=== PATIENT | male | born 1945 | race Caucasian/White ===

== ENCOUNTER → 2017-10-22 07:58 | Outpatient (CLI) | payer MEDICARE, OTHER, SELFPAY ==
--- NOTE | 2017-10-22 | DI.RAD.S_ITS ---
PROCEDURE: XR WRIST RT MIN 3V INDICATIONS: RIGHT WRIST PAIN TECHNIQUE: 3 views of the wrist were acquired. COMPARISON: None. FINDINGS: Bones: No fractures or dislocations. No suspicious bony lesions that would indicate likelihood of underlying infection or neoplasm. There are, however, small erosions involving the ulnar styloid process. The patient indicates that the tenderness is most prominent at the distal ulna an area of erosions. Scaphoid view: No trauma to the scaphoid is found. Soft tissues: No suspicious soft tissue calcifications. IMPRESSION: Rheumatoid arthritis is the likely cause for the asymmetric finding of predominance of small osseous erosions at the ulnar styloid process and at its base. Dictated by: Abelardo Lagunas M.D. on 10/22/2017 at 9:04 Approved by: Abelardo Lagunas M.D. on 10/22/2017 at 9:09
== END ==
PROVIDERS: PCP Internal Medicine; Visit Provider Internal Medicine
DX: M06.9 Rheumatoid arthritis, unspecified (principal); M25.531 Pain in right wrist
CPT/HCPCS: 73110

== ENCOUNTER → 2018-01-19 14:33 | Outpatient (CLI) | payer MEDICARE, OTHER, SELFPAY ==
--- NOTE | 2018-01-19 | DI.RAD.S_ITS ---
PROCEDURE: XR FEMUR LT MIN 2V INDICATIONS: UNSPECIFIED FALL left femur pain TECHNIQUE: 4 views of the femur were acquired. COMPARISON: None. FINDINGS: Bones: No fractures or dislocations. No suspicious bony lesions. Degenerative changes in the left hip. Soft tissues: No suspicious soft tissue calcifications or masses. Vascular calcifications. Left inguinal surgical clips. IMPRESSION: No acute fractures or dislocations. If there is clinical concern for a radiographically occult hip fracture then a noncontrast MRI would be recommended for further evaluation. Dictated by: Demetrius Suero M.D. on 01/19/2018 at 16:36 Approved by: Demetrius Suero M.D. on 01/19/2018 at 16:38
== END ==
PROVIDERS: PCP Internal Medicine; Visit Provider Student in an Organized Health Care Education/Training Program
DX: M89.8X5 Other specified disorders of bone, thigh (principal); W19.XXXA Unspecified fall, initial encounter
CPT/HCPCS: 73552

== ENCOUNTER → 2018-09-28 07:00 | Outpatient (CLI) | payer MEDICARE, OTHER, SELFPAY ==
[2018-09-28 09:23] LABS: Alanine Aminotransferase 28 IU/L (21-72); Albumin 3.7 g/dL (3.5-5.0); Albumin Globulin Ratio 1.4 (1.0-2.8); Alkaline Phosphatase 69 U/L (38-126); Aspartate Aminotransferase 35 IU/L (17-59); Bilirubin Total 1.3 mg/dL (0.2-1.3); Blood Urea Nitrogen 33 mg/dL (9-20); Calcium 9.3 mg/dL (8.4-10.2); Carbon Dioxide 26 mmol/L (22-32); Chloride 104 mmol/L (98-107); Estimated Glomerular Filt Rate 45.9 mL/min (>60); Globulin 2.7 g/dL (1.7-4.1); Glucose 97 mg/dL (80-110); HEMOLYSIS < 15 (0-50); Potassium 4.2 mmol/L (3.4-5.1); Sodium 139 mmol/L (137-145); Total Protein 6.4 g/dL (6.3-8.2)
[2018-09-30 14:08] LABS: Lipoprofile NMR SEE SEPERATE REPORT
== END ==
PROVIDERS: PCP Internal Medicine; Visit Provider Physician Assistant Medical
DX: E78.2 Mixed hyperlipidemia (principal); I10 Essential (primary) hypertension
CPT/HCPCS: 36415; 80053; 83704; 83735

== ENCOUNTER 2018-10-07 07:15 | Day surgery (SDC) | payer MEDICARE, OTHER, SELFPAY ==
--- NOTE | 2018-10-07 | PATH_ITS ---
[facility] Accession Number: [id number] . 01 Material submitted: . colon - BIOPSY OF COLON ANASTAMOSIS . 02 Diagnosis: Biopsy of Colon Anastomosis: Multiple fragments of small bowel mucosa with mild chronic inflammation. Negative for evidence of neoplasm. V/10/10/2018 . 02 Electronically signed: . Osito Billingsley MD, Pathologist NPI- [id number] . 01 Gross description: . BIOPSY OF COLON ANASTAMOSIS: Received in formalin are 3 fragment(s) of toussaint, soft tissue measuring 0.1 x 0.1 x 0.1 cm to 0.3 x 0.2 x 0.2 cm which is entirely submitted and submitted entirely in 1 cassette(s) /DMC /DM . 02 Pathologist provided ICD-10: Z90.49 . 02 CPT . 972761 Performed at: 01 [facility] [address] [facility], [place], [place] [id number] MD Michael Malone MD Phone: [phone] Performed at: 02 [facility] [address] [place], [place] [id number] MD Allyn Kline MD Phone: [phone]
[2018-10-07 07:58] VITALS: BP 149/87; PULSE 63; RESP 18; TEMP 36.1; O2SAT 98; BMI 26.5
[2018-10-07] MEDS: SODIUM CHLORIDE 0.9% 1,000 ML 200 ML IV (08:31)
--- NOTE | 2018-10-07 08:46 | PM.HP.1 ---
History of Present Illness Date Patient Seen: 10/07/18 Time Patient Seen: 08:46 Chief complaint: [id number] Narrative: Patient is a gentleman who has had a colon resection for cancer. He is here for a surveillance colonoscopy. No bleeding. Patient History Medical History (Updated 10/07/18 @ 08:48 by Rodney Shelton MD) Chronic anticoagulation (Chronic) History of SD (myocardial infarction) (Resolved) History of pulmonary embolism (Resolved) Surgical History (Updated 10/07/18 @ 08:48 by Rodney Shleton MD) History of colon resection (Acute) History of heart artery stent (Resolved) Social History household members: spouse Family & Social History Social History: household members spouse Meds Home Medications Medication Instructions Recorded Confirmed Type hydrochlorothiazide 25 mg PO Q DAY #0 01/17/11 10/07/18 History allopurinol 300 mg PO QDAY #0 01/28/11 10/07/18 History ezetimibe-simvastatin [Vytorin 1 tab PO HS #0 01/28/11 History 10-10] CALCIUM CARBONATE (#CALTRATE 600) 600 mg PO QDAY #0 06/03/11 History oxycodone 5 mg PO PRN #0 06/03/11 10/07/18 History Xarelto 20 mg PO Q DAY #0 01/09/17 10/07/18 History amlodipine 2.5 mg PO DAILY 10/07/18 10/07/18 History aspirin [Aspir-81] 81 mg PO DAILY 10/07/18 10/07/18 History Allergies Allergy/AdvReac Type Severity Reaction Status Date / Time enalapril [ENALAPRIL] Allergy Mild EDEMA Unverified 10/07/18 07:58 crab [CRAB] Allergy Unknown CRAB/LOBSTE Unverified 10/07/18 07:58 R-VOMITING lisinopril [LISINOPRIL] Allergy Unknown EDEMA OF Unverified 10/07/18 07:58 LIPS Review of Systems Review of Systems All systems reviewed & are unremarkable except as noted in HPI and below Cardiovascular Comments: Had a silent SD in the past. No symptoms since no problems with his heart since. He did have a pulmonary embolism 2 years ago. Because of this he is chronically anticoagulated. He does not know if he has any predisposition to clotting. Exam Vital Signs (past 8 hours): - 10/07/18 07:58 Temperature 97.0 F L Pulse Rate 63 Respiratory Rate 18 Blood Pressure 149/87 H Pulse Oximetry 98 Oxygen Delivery Method Room Air Narrative Exam Narrative: Pleasant cooperative patient no apparent distress. Lungs are clear to auscultation. No rales or rhonchi. Heart regular rate and rhythm no murmur gallop. Abdomen is soft nontender without mass. Scar in the upper abdomen noted. He is very ticklish in is difficult to assess his abdomen. Patient is alert and oriented x3. Assessment & Plan Assessment & Plan narrative: The patient for a screening colonoscopy. I have discussed the procedure with them. Risks of bleeding, perforation which would necessitate major operation, failure to find remove all lesions, the potential tattoo were all discussed. All questions were answered. They wished to proceed.
--- NOTE | 2018-10-07 08:50 | P.HP_ITS ---
History of Present Illness Date Patient Seen: 10/07/18 Time Patient Seen: 08:46 Chief complaint: [id number] Narrative: Patient is a gentleman who has had a colon resection for cancer. He is here for a surveillance colonoscopy. No bleeding. Patient History Medical History (Updated 10/07/18 @ 08:48 by Rodney Shelton MD) Chronic anticoagulation (Chronic) History of WI (myocardial infarction) (Resolved) History of pulmonary embolism (Resolved) Surgical History (Updated 10/07/18 @ 08:48 by Rodney Shelton MD) History of colon resection (Acute) History of heart artery stent (Resolved) Social History household members: spouse Family & Social History Social History: household members spouse Meds Home Medications Medication Instructions Recorded Confirmed Type hydrochlorothiazide 25 mg PO Q DAY #0 01/17/11 10/07/18 History allopurinol 300 mg PO QDAY #0 01/28/11 10/07/18 History ezetimibe-simvastatin [Vytorin 1 tab PO HS #0 01/28/11 History 10-10] CALCIUM CARBONATE (#CALTRATE 600) 600 mg PO QDAY #0 06/03/11 History oxycodone 5 mg PO PRN #0 06/03/11 10/07/18 History Xarelto 20 mg PO Q DAY #0 01/09/17 10/07/18 History amlodipine 2.5 mg PO DAILY 10/07/18 10/07/18 History aspirin [Aspir-81] 81 mg PO DAILY 10/07/18 10/07/18 History Allergies Allergy/AdvReac Type Severity Reaction Status Date / Time enalapril [ENALAPRIL] Allergy Mild EDEMA Unverified 10/07/18 07:58 crab [CRAB] Allergy Unknown CRAB/LOBSTE Unverified 10/07/18 07:58 R-VOMITING lisinopril [LISINOPRIL] Allergy Unknown EDEMA OF Unverified 10/07/18 07:58 LIPS Review of Systems Review of Systems All systems reviewed & are unremarkable except as noted in HPI and below Cardiovascular Comments: Had a silent WI in the past. No symptoms since no problems with his heart since. He did have a pulmonary embolism 2 years ago. Because of this he is chronically anticoagulated. He does not know if he has any predisposition to clotting. Exam Vital Signs (past 8 hours): - 10/07/18 07:58 Temperature 97.0 F L Pulse Rate 63 Respiratory Rate 18 Blood Pressure 149/87 H Pulse Oximetry 98 Oxygen Delivery Method Room Air Narrative Exam Narrative: Pleasant cooperative patient no apparent distress. Lungs are clear to auscultation. No rales or rhonchi. Heart regular rate and rhythm no murmur gallop. Abdomen is soft nontender without mass. Scar in the upper abdomen noted. He is very ticklish in is difficult to assess his abdomen. Patient is alert and oriented x3. Assessment & Plan Assessment & Plan narrative: The patient for a screening colonoscopy. I have discussed the procedure with them. Risks of bleeding, perforation which would necessitate major operation, failure to find remove all lesions, the potential tattoo were all discussed. All questions were answered. They wished to proceed.
--- NOTE | 2018-10-07 08:50 | PM.PREOP ---
Pre-operative Note Interval Note History & Physical reviewed/Exam performed by Physician: Yes Changes to H&P: No ASA Class (for procedural sedation): III
[2018-10-07] MEDS: fentaNYL 250 MCG/5 ML INJ IV (09:09)
[2018-10-07] MEDS: MIDAZOLAM 5 MG/5 ML VIAL IV (09:09)
--- NOTE | 2018-10-07 09:18 | PM.OP.ENDO ---
Operative Date/Time/Diagnoses Date of procedure: 10/07/18 Time of procedure: 09:18 Pre-op diagnosis: History of colon cancer Post-op diagnosis: same (Sigmoid diverticulosis. Internal hemorrhoids) Procedure & Clinicians Study performed: Colonoscopy with cold biopsy Same procedure as scheduled: Yes Indications: Screening/surveillance. Last colonoscopy 3 years ago. Surgeon: Rodney Shelton Procedure Notes SCOAP/Timeout: Performed Procedure in detail: The patient was placed in the left lateral decubitus position and underwent IV sedation directed by the surgeon consisting of fentanyl and Versed. Digital exam was remarkable for a mildly firm prostate. The scope was inserted and advanced through the rectum into the sigmoid, descending, transverse, and ascending colon. The patient was noted to have extensive sigmoid diverticulosis. The anastomosis was reached. The patient had had a right hemicolectomy. At the edge of the small bowel there was of small prominent area that I biopsied to see if it was an abnormality. I suspect it is just a normal variant but wanted to be certain. The scope was gradually brought out. No Polyps were found. The scope ultimately was retroflexed in the rectum. The appearance was remarkable for internal hemorrhoids without ulceration. The scope was removed and the patient tolerated the procedure well. The prep was good. Scope withdrawal time: 10 min excluding biopsy time Sedation minutes: 24 Findings: diverticulosis (Sigmoid) and internal hemorrhoids Specimen(s): other (Biopsy of anastomosis) Recommendations: Colonscopy in 5 years Follow up: as needed Disposition: PACU
[2018-10-07 09:22] VITALS: BP 107/71; PULSE 61; RESP 18; TEMP 36.7; O2SAT 96
[2018-10-07 09:29] VITALS: BP 135/67; PULSE 63; RESP 14; O2SAT 97
[2018-10-07 09:31] VITALS: BP 138/77; PULSE 61; RESP 13; O2SAT 97
[2018-10-07 09:40] VITALS: BP 120/76; PULSE 58; RESP 15; TEMP 36.9; O2SAT 97
[2018-10-07 09:56] VITALS: BP 131/78; PULSE 58; RESP 16; TEMP 36.3; O2SAT 94
== END 2018-10-07 10:00 | disposition home or self-care (01) ==
PROVIDERS: PCP Internal Medicine; Visit Provider Specialist
PROC: 0DJD8ZZ Inspection of Lower Intestinal Tract, Via Natural or Artificial Opening Endoscopic (ICD-10-PCS; CPT 45378; principal; 2018-10-07 08:45)
DX: Z85.038 Personal history of other malignant neoplasm of large intestine (principal); Z90.49 Acquired absence of other specified parts of digestive tract; K57.30 Diverticulosis of large intestine without perforation or abscess without bleeding; K64.8 Other hemorrhoids; Z79.01 Long term (current) use of anticoagulants; I25.2 Old myocardial infarction; Z86.711 Personal history of pulmonary embolism
CPT/HCPCS: 45380; 88305; 99152; 99153; J2250; J3010

== ENCOUNTER → 2018-10-13 07:16 | Outpatient (CLI) | payer MEDICARE, OTHER, SELFPAY ==
[2018-10-13 08:31] LABS: BUN Creatinine Ratio 19.3 (6-22); Blood Urea Nitrogen 29 mg/dL (9-20); Calcium 9.4 mg/dL (8.4-10.2); Carbon Dioxide 26 mmol/L (22-32); Chloride 105 mmol/L (98-107); Estimated Glomerular Filt Rate 45.9 mL/min (>60); Glucose 101 mg/dL (80-110); HEMOLYSIS < 15 (0-50); Potassium 4.5 mmol/L (3.4-5.1); Sodium 139 mmol/L (137-145)
== END ==
PROVIDERS: PCP Internal Medicine; Visit Provider Internal Medicine
DX: N18.9 Chronic kidney disease, unspecified (principal)
CPT/HCPCS: 36415; 80048

== ENCOUNTER → 2019-10-09 06:40 | Outpatient (CLI) | payer MEDICARE, OTHER, SELFPAY ==
[2019-10-09 08:46] LABS: Alanine Aminotransferase 20 IU/L (<50); Albumin 3.9 g/dL (3.5-5.0); Albumin Globulin Ratio 1.3 (1.0-2.8); Alkaline Phosphatase 65 U/L (38-126); Aspartate Aminotransferase 40 IU/L (17-59); BUN Creatinine Ratio 19.9 (6-22); Bilirubin Total 1.3 mg/dL (0.2-1.3); Blood Urea Nitrogen 29 mg/dL (9-20); Calcium 9.7 mg/dL (8.4-10.2); Carbon Dioxide 28 mmol/L (22-32); Chloride 105 mmol/L (98-107); Estimated Glomerular Filt Rate 47.2 mL/min (>60); Globulin 2.9 g/dL (1.7-4.1); Glucose 106 mg/dL (80-110); HEMOLYSIS 21 (0-50); Magnesium 1.9 mg/dL (1.6-2.3); Potassium 4.5 mmol/L (3.4-5.1); Sodium 137 mmol/L (137-145); Total Protein 6.8 g/dL (6.3-8.2)
[2019-10-11 08:11] LABS: Cholesterol, Total 163 mg/dL (100-199); HDL-Cholesterol 74 mg/dL (>39); HDL-Particle (Total) 37.7 umol/L (>=30.5); Historical Reading Comment: (.); LDL Particle 718 nmol/L (<1000); LDL Size 21.4 nm (>20.5); LDL-Cholsterol 79 mg/dL (0-99); LP-IR Score <25 (<=45); Small LDL- Particle 121 nmol/L (<=527); Triglycerides 50 mg/dL (0-149)
== END ==
PROVIDERS: PCP Internal Medicine; Referring Provider Specialist; Visit Provider Specialist
DX: E78.2 Mixed hyperlipidemia (principal); I10 Essential (primary) hypertension
CPT/HCPCS: 36415; 80053; 80061; 83704; 83735

== ENCOUNTER → 2019-11-07 18:32 | Outpatient (ROUT) | payer MEDICARE, OTHER, SELFPAY ==
[2019-11-07 18:54] LABS: Add Manual Diff / Slide Review NO; Basophils Absolute Auto 100 /uL (0-100); Basophils Percent Auto 1.1 % (0-2); Eosinophils Absolute Auto 100 /uL (0-450); Hematocrit 38.5 % (41-53); Hemoglobin 13.5 g/dL (13.5-17.5); Lymphocytes Absolute Auto 500 /uL (1100-4500); Lymphocytes Percent Auto 10.3 % (25-40); Mean Corpuscular Hemoglobin 35.3 PG (26-34); Monocytes Absolute Auto 400 /uL (0-900); Monocytes Percent Auto 7.5 % (3-14); Neutrophils Absolute Auto 3900 /uL (1500-7000); Neutrophils Percent Auto 78.1 % (50-75); Platelet Count 118 X10^3/uL (150-400); Red Blood Cell Count 3.81 X10^6/uL (4.5-5.9); Red Cell Distribution Width 13.6 % (11.6-14.8); White Blood Cell Count 4.9 X10^3/uL (4.5-11.0)
[2019-11-07 19:35] LABS: TSH w/ Reflex to FT4 1.33 uIU/mL (0.47-4.68)
[2019-11-07 19:36] LABS: Prostate Specific Antigen 1.87 ng/mL (0.10-4.00)
== END ==
PROVIDERS: PCP Internal Medicine; Visit Provider Internal Medicine
DX: R53.83 Other fatigue (principal); N40.0 Benign prostatic hyperplasia without lower urinary tract symptoms
CPT/HCPCS: 84153; 84443; 85025

== ENCOUNTER → 2020-03-25 07:02 | Outpatient (CLI) | payer MEDICARE, OTHER, SELFPAY ==
[2020-03-25 08:35] LABS: Alanine Aminotransferase 21 IU/L (<50); Albumin 3.9 g/dL (3.5-5.0); Albumin Globulin Ratio 1.3 (1.0-2.8); Alkaline Phosphatase 69 U/L (38-126); Aspartate Aminotransferase 32 IU/L (17-59); BUN Creatinine Ratio 19.6 (6-22); Bilirubin Total 1.2 mg/dL (0.2-1.3); Blood Urea Nitrogen 33 mg/dL (9-20); Calcium 9.3 mg/dL (8.4-10.2); Carbon Dioxide 28 mmol/L (22-32); Chloride 105 mmol/L (98-107); Estimated Glomerular Filt Rate 40.1 mL/min (>60); Globulin 3.1 g/dL (1.7-4.1); Glucose 107 mg/dL (80-110); HEMOLYSIS < 15 (0-50); Potassium 4.2 mmol/L (3.4-5.1); Sodium 136 mmol/L (137-145)
[2020-04-02 16:06] LABS: LDL Particle 677
[2020-04-02 16:07] LABS: LDL-Cholsterol 79
[2020-04-02 16:08] LABS: Cholesterol, Total 169; HDL-Cholesterol 79; Triglycerides 52
[2020-04-02 16:09] LABS: HDL-Particle (Total) 36.9
[2020-04-02 16:10] LABS: LDL Size 21.1; Small LDL- Particle 141
== END ==
PROVIDERS: PCP Internal Medicine; Referring Provider Specialist; Visit Provider Specialist
DX: E78.2 Mixed hyperlipidemia (principal); I10 Essential (primary) hypertension; N18.2 Chronic kidney disease, stage 2 (mild)
CPT/HCPCS: 36415; 80053; 80061; 83704; 83735

== ENCOUNTER → 2020-04-08 07:11 | Outpatient (CLI) | payer MEDICARE, OTHER, SELFPAY ==
[2020-04-08 09:10] LABS: BUN Creatinine Ratio 16.6 (6-22); Blood Urea Nitrogen 25 mg/dL (9-20); Calcium 9.5 mg/dL (8.4-10.2); Carbon Dioxide 30 mmol/L (22-32); Chloride 105 mmol/L (98-107); Estimated Glomerular Filt Rate 45.4 mL/min (>60); Glucose 102 mg/dL (80-110); HEMOLYSIS < 15 (0-50); Potassium 4.5 mmol/L (3.4-5.1); Sodium 136 mmol/L (137-145)
== END ==
PROVIDERS: PCP Internal Medicine; Referring Provider Specialist; Visit Provider Specialist
DX: I10 Essential (primary) hypertension (principal)
CPT/HCPCS: 36415; 80048

== ENCOUNTER → 2020-05-06 10:39 | Outpatient (CLI) | payer MEDICARE, OTHER, SELFPAY ==
[2020-05-06 12:26] LABS: BUN Creatinine Ratio 19.5 (6-22); Blood Urea Nitrogen 34 mg/dL (9-20); Calcium 9.5 mg/dL (8.4-10.2); Carbon Dioxide 31 mmol/L (22-32); Chloride 103 mmol/L (98-107); Estimated Glomerular Filt Rate 38.5 mL/min (>60); Glucose 116 mg/dL (80-110); HEMOLYSIS < 15 (0-50); Magnesium 1.9 mg/dL (1.6-2.3); Potassium 4.3 mmol/L (3.4-5.1); Sodium 138 mmol/L (137-145)
== END ==
PROVIDERS: PCP Internal Medicine; Referring Provider Specialist; Visit Provider Specialist
DX: I10 Essential (primary) hypertension (principal)
CPT/HCPCS: 36415; 80048; 83735

== ENCOUNTER → 2021-03-26 06:59 | Outpatient (CLI) | payer MEDICARE, OTHER, SELFPAY ==
[2021-03-26 08:48] LABS: Alanine Aminotransferase 23 IU/L (<50); Albumin 3.7 g/dL (3.5-5.0); Albumin Globulin Ratio 1.4 (1.0-2.8); Alkaline Phosphatase 59 U/L (38-126); Aspartate Aminotransferase 32 IU/L (17-59); BUN Creatinine Ratio 16.5 (6-22); Blood Urea Nitrogen 26 mg/dL (9-20); Calcium 9.6 mg/dL (8.4-10.2); Carbon Dioxide 27 mmol/L (22-32); Chloride 108 mmol/L (98-107); Globulin 2.7 g/dL (1.7-4.1); Glucose 113 mg/dL (80-110); HEMOLYSIS < 15 (0-50); Magnesium 1.9 mg/dL (1.6-2.3); Potassium 4.3 mmol/L (3.4-5.1); Sodium 140 mmol/L (137-145); Total Protein 6.4 g/dL (6.3-8.2)
== END ==
PROVIDERS: PCP Internal Medicine; Referring Provider Specialist; Visit Provider Physician Assistant Medical
DX: I49.3 Ventricular premature depolarization (principal); I25.5 Ischemic cardiomyopathy
CPT/HCPCS: 36415; 80053; 83735

== ENCOUNTER → 2023-08-18 13:31 | Outpatient (CLI) | payer MEDICARE, OTHER, SELFPAY ==
[2023-08-18 14:00] LABS: Appearance Urine UA CLEAR; Bilirubin Urine UA NEGATIVE (NEGATIVE); Color Urine UA YELLOW; Glucose Urine UA NEGATIVE (Negative); Ketones Urine UA TRACE (NEGATIVE); Leukocyte Esterase Urine UA NEGATIVE (NEGATIVE); Nitrite Urine UA NEGATIVE (Negative); Occult Blood Urine UA NEGATIVE (Negative); Protein Urine UA 2+ (Negative); pH Urine UA 5.5 (4.5-8.0)
[2023-08-18 14:09] LABS: Bacteria Urine None Seen; Culture Indicated Urine Cult Not Indicated; RBC Urine 0-1/HPF (0-5/HPF); Squamous Epithelial Cell Urine None Seen (0-5/HPF); Urine Volume 10mL (spun); WBC Urine 1-5/HPF (0-5/HPF)
== END ==
PROVIDERS: PCP Internal Medicine; Referring Provider Internal Medicine; Visit Provider Internal Medicine
DX: R35.0 Frequency of micturition (principal)
CPT/HCPCS: 81001

== ENCOUNTER → 2023-08-31 15:20 | Outpatient (CLI) | payer MEDICARE, OTHER, SELFPAY ==
[2023-08-31 19:42] LABS: Appearance Urine UA CLEAR; Bilirubin Urine UA NEGATIVE (NEGATIVE); Color Urine UA YELLOW; Glucose Urine UA NEGATIVE (Negative); Ketones Urine UA NEGATIVE (NEGATIVE); Leukocyte Esterase Urine UA NEGATIVE (NEGATIVE); Nitrite Urine UA NEGATIVE (Negative); Occult Blood Urine UA TRACE-INTACT (Negative); Protein Urine UA 1+ (Negative); Specific Gravity Urine UA 1.025 (1.000-1.035); Urobilinogen Urine UA 0.2 E.U./dL (0.2); pH Urine UA 5.5 (4.5-8.0)
[2023-08-31 20:46] LABS: Bacteria Urine None Seen; Culture Indicated Urine Cult Not Indicated; Hyaline Casts Urine 1-5/LPF; RBC Urine 0-1/HPF (0-5/HPF); Squamous Epithelial Cell Urine 0-1 /HPF (0-5/HPF); Urine Volume 10mL (spun); WBC Urine None Seen (0-5/HPF)
[2023-09-02 12:05] LABS: Prostate Specific Antigen 2.53 ng/mL (0.10-4.00)
[2023-09-02 14:11] LABS: BUN Creatinine Ratio 20.3 (6-22); Blood Urea Nitrogen 37 mg/dL (9-20); Calcium 9.4 mg/dL (8.4-10.2); Carbon Dioxide 21 mmol/L (22-32); Chloride 114 mmol/L (98-107); Estimated Glomerular Filt Rate 38 mL/min (>60); Glucose 92 mg/dL (80-110); HEMOLYSIS < 15 (0-50); Potassium 5.4 mmol/L (3.4-5.1); Sodium 140 mmol/L (137-145)
== END ==
LOC: LAB 15:21
PROVIDERS: PCP Internal Medicine; Referring Provider Internal Medicine; Visit Provider Internal Medicine
DX: N41.0 Acute prostatitis (principal); N18.32 Chronic kidney disease, stage 3b
CPT/HCPCS: 36415; 80048; 81001; 84153

== ENCOUNTER 2023-09-30 10:02 | Day surgery (SDC) | payer MEDICARE, OTHER, SELFPAY ==
[2023-09-30 10:32] VITALS: BP 144/85; PULSE 60; RESP 16; TEMP 36.9; O2SAT 99
[2023-09-30] MEDS: LACTATED RINGERS 1,000 ML 150 ML IV (10:36)
--- NOTE | 2023-09-30 10:39 | PM.HP.1 ---
History of Present Illness History of Present Illness Date Patient Seen: 09/30/23 Time Patient Seen: 10:39 Chief complaint: Colonoscopy Narrative: Robert is a 78-year-old man who is here for colonoscopy. His last 1 was 5 years ago and no polyps were found. He did have colon cancer in 2011 and had a right hemicolectomy by Dr. Shelton. 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 Actinic keratoses GERD without esophagitis History of colon cancer Primary osteoarthritis involving multiple joints Chronic kidney disease, stage 3b Mixed hyperlipidemia Essential hypertension Systolic CHF, chronic Acne (~1959) Gout (~1997) Chronic back pain (~2020) Dengue (~1971) Encephalitis (~1948) Mumps (~1948) Hepatitis (~1962) Chicken pox (~1949) Meniere's disease (~2008) Tinnitus (~2009) Hearing loss (~2009) Amebic dysentery Coronary artery disease (~1999) Colorectal cancer (~2011) Chronic anticoagulation History of pulmonary embolism (~2015) History of ID (myocardial infarction) Kidney stone (~1996) Surgical History Anesthesia History of hernia repair (~1992) Pacemaker (~2020) History of heart artery stent History of colon resection (~2011) Family History Mother History of heart disease Social History household members: spouse Smoking Status: Former smoker alcohol intake: current Meds Home Medications and Allergies Home Medications Medication Instructions Recorded Confirmed Type atorvastatin 80 mg tablet 80 mg PO DAILY 10/13/21 08/31/23 History cholecalciferol (vitamin D3) 50 50 mcg PO DAILY 10/13/21 09/30/23 History mcg (2,000 unit) capsule colchicine 0.6 mg tablet (Colcrys) 0.6 mg PO DAILY PRN Gout 10/13/21 09/30/23 History ezetimibe 10 mg tablet (Zetia) 10 mg PO DAILY 10/13/21 09/30/23 History folic acid 1 mg tablet 1 mg PO DAILY 10/13/21 08/31/23 History nitroglycerin 0.4 mg sublingual 0.4 mg sublingual Q5M PRN Chest 10/13/21 09/30/23 History tablet Pain rivaroxaban 15 mg tablet (Xarelto) 15 mg PO DAILY #90 tabs 10/13/21 09/30/23 Rx lorazepam 0.5 mg tablet 0.5 mg PO BID PRN air travel #6 12/09/22 09/30/23 Rx tabs aspirin 81 mg tablet,delayed 81 mg PO DAILY 06/17/23 08/31/23 History release carvedilol 25 mg tablet 12.5 mg PO BID 06/17/23 09/30/23 History allopurinol 100 mg tablet 50 mg (1/2 x 100 mg) PO DAILY #45 09/29/23 Rx tabs Allergies Allergy/AdvReac Type Severity Reaction Status Date / Time enalapril [ENALAPRIL] Allergy Mild EDEMA Verified 08/31/23 11:56 crab [CRAB] Allergy Unknown CRAB/LOBSTE Verified 08/31/23 11:56 R-VOMITING lisinopril [LISINOPRIL] Allergy Unknown EDEMA OF Verified 08/31/23 11:56 LIPS Exam Vital Signs (past 8 hours): - 09/30/23 10:32 Temperature 98.4 F Pulse Rate 60 Respiratory Rate 16 Blood Pressure 144/85 H Pulse Oximetry 99 Oxygen Delivery Method Room Air Oxygen Delivery Method Room Air Const General: No acute distress Resp Effort & Inspection: normal respiratory effort Assessment & Plan Assessment and plan (1) History of colon cancer: Status: Acute Plan We reviewed the risks and benefits of colonoscopy for history of colon cancer and he would like to proceed.
[2023-09-30 11:08] VITALS: BP 111/71; PULSE 62; RESP 12; TEMP 36.4; O2SAT 98
--- NOTE | 2023-09-30 11:09 | PM.OP.COLON ---
Operative Date/Time/Diagnoses Date of procedure: 09/30/23 Time of procedure: 11:09 Pre-op diagnosis: History of colon cancer Post-op diagnosis: same Procedure & Clinicians Study performed: Colonoscopy Same procedure as scheduled: Yes Surgeon: Quan Shook Procedure Notes Procedure in detail: Surgeon: Quan Shook MD Anesthesia: Marcial Pugh MD Procedure: The patient was brought to the endoscopy suite, placed in left lateral decubitus position. The patient was connected to monitoring devices. A time-out was performed. Sedation was administered. Once the patient was adequately sedated, a digital rectal exam was performed and was normal. The scope was then inserted and advanced to the ileocolic anastomosis. The scope was then slowly withdrawn over greater than 6 minutes. The mucosa was thoroughly inspected. There was moderate sigmoid colon diverticulosis. The scope was retroflexed in the rectum. No other abnormalities were found. The scope was straightened and removed. The patient was awakened and brought to recovery. Scope withdrawal time: 7 minutes Sedation time: 12 minutes EBL: 0 Findings: Sigmoid colon diverticulosis Post-procedure Disposition: PACU
[2023-09-30 11:12] VITALS: BP 126/78; PULSE 64; RESP 17; TEMP 36.4; O2SAT 97
[2023-09-30 11:17] VITALS: BP 130/77; PULSE 54; RESP 12; TEMP 36.4; O2SAT 99
[2023-09-30 11:21] VITALS: BP 134/78; PULSE 61; RESP 14; TEMP 36.3; O2SAT 98
== END 2023-09-30 11:27 | disposition home or self-care (01) ==
PROVIDERS: PCP Internal Medicine; Referring Provider Surgery; Visit Provider Surgery
PROC: 0DJD8ZZ Inspection of Lower Intestinal Tract, Via Natural or Artificial Opening Endoscopic (ICD-10-PCS; CPT 45378; principal; 2023-09-30 11:00)
DX: Z12.11 Encounter for screening for malignant neoplasm of colon (principal); Z86.010 Personal history of colon polyps; K57.30 Diverticulosis of large intestine without perforation or abscess without bleeding
CPT/HCPCS: G0105; J2704

== ENCOUNTER 2024-12-07 08:15 | Outpatient (RCR) | payer MEDICARE, OTHER, SELFPAY ==
--- NOTE | 2024-10-12 18:11 | PT.OIE ---
Current Diagnoses Dorsalgia, unspecified (10/12/24) Past Medical History (Last Updated 05/25/24 @ 10:33 by Silvano [place] MD) Acne (~1959) Actinic keratoses Amebic dysentery Benign essential tremor BPH w urinary obs/LUTS Chicken pox (~1949) Chronic anticoagulation Chronic back pain (~2020) Chronic kidney disease, stage 3b Coronary artery disease (~1999) Dengue (~1971) Do not resuscitate Encephalitis (~1948) Essential hypertension GERD without esophagitis Gout (~1997) Hearing loss (~2009) Hepatitis (~1962) History of colon cancer History of UT (myocardial infarction) History of pulmonary embolism (~2015) Homocysteinemia Kidney stone (~1996) Meniere's disease (~2008) Mixed hyperlipidemia Mumps (~1948) Primary osteoarthritis involving multiple joints Systolic CHF, chronic Tinnitus (~2009) Past Surgical History (Last Reviewed 05/25/24 @ 10:16 by Silvano [place] MD) Anesthesia History of colon resection (~2011) History of heart artery stent History of hernia repair (~1992) Pacemaker (~2020) Visit Care Team Role Provider Type Silvano [place] MD Attending Provider Physician Family Provider Primary Care Provider Referring Provider Specialty: Internal Medicine Address: [address] [place] [address] Email: [email or web address] Therapy Initial Evaluation PT-OP-A Visit Information Start: 10/12/24 09:35 Freq: Status: Active Protocol: Document 10/12/24 09:37 BUSINESS PROCESS ENGINEER (Rec: 10/12/24 10:42 BUSINESS PROCESS ENGINEER Laptop) Out-Patient Physical Therapy Visit Information Visit Information Visit Type Initial Evaluation Visit Start Time 09:45 Visit Stop Time 10:35 Visit Number 1 Number of PHONOGRAPH CARTRIDGE ASSEMBLER Visits 0 Precautions Precautions N/A PT-OP-B Current Condition Start: 10/12/24 09:35 Freq: Status: Active Protocol: Document 10/12/24 09:37 BUSINESS PROCESS ENGINEER (Rec: 10/12/24 10:42 BUSINESS PROCESS ENGINEER Laptop) Current Condition History of Current Condition Current Complaints mid and R lumbar pain with radiation to proximal RLE under glute History of Current Condition Lower 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 Has to take a lot of sitting breaks. Mornings are most painful. Does cardiac rehab 3x/wk treadmill and elliptical 20 mins each for 3 years which doesn't bother his back. Walking in neighborhood ~2 miles increases back pain. Has to hold onto treadmill, feels more off balance than he used to. Pain radiates down RLE after increased activity/ yard work with bending and stooping, radiates down to just below glute. Prior Treatments and Tests Has had PT for back in 2005 with success Treatment Goals Patient/Caregiver Goals To be more active, to do yard work without so many rest breaks, walk longer distances for golf. PT-OP-C Subjective Start: 10/12/24 09:35 Freq: Status: Active Protocol: Document 10/12/24 09:37 BUSINESS PROCESS ENGINEER (Rec: 10/12/24 12:11 BUSINESS PROCESS ENGINEER Laptop) Patient Questionnaires Oswestry Low Back Index Oswestry Score 16% OP-PT Pain Assessment Comments Pain Comments Pt reports pain to mid back and R side with radiation to proximal post thigh under glute. Pain exacerbates with sitting unsupported, amb long distances outside on uneven ground, and bending and stooping to perform yard work. PT-OP-D Balance Start: 10/12/24 09:35 Freq: Status: Active Protocol: Document 10/12/24 09:37 BUSINESS PROCESS ENGINEER (Rec: 10/12/24 10:42 BUSINESS PROCESS ENGINEER Laptop) Balance Tests Single Limb Standing Single Limb- Right 4s Single Limb- Left 4s PT-OP-F Manual Assessment Start: 10/12/24 09:35 Freq: Status: Active Protocol: Document 10/12/24 09:37 BUSINESS PROCESS ENGINEER (Rec: 10/12/24 12:11 BUSINESS PROCESS ENGINEER Laptop) Manual Assessments Soft Tissue Assessment Soft Tissue Mobility Assessment Decreased soft tissue mobility to B glute max, B glute med, B piriformis, R lumbar paraspinals. R limitation >L with TTP at all PT-OP-H Neuro Start: 10/12/24 09:35 Freq: Status: Active Protocol: Document 10/12/24 09:37 BUSINESS PROCESS ENGINEER (Rec: 10/12/24 10:42 BUSINESS PROCESS ENGINEER Laptop) Sensation Evaluation Comments Summary Comments Numbness occasionally in all toes of B feet PT-OP-J Posture/Palpation/Skin Start: 10/12/24 09:35 Freq: Status: Active Protocol: Document 10/12/24 09:37 BUSINESS PROCESS ENGINEER (Rec: 10/12/24 10:42 BUSINESS PROCESS ENGINEER Laptop) Posture Evaluation Comments Posture Comments Sitting: L shoulder elevated, forward head, forward rounded B shoulders Standing: increased mid thoracic kyphosis, decreased lumbar lordosis, mild R trunk lateral flex PT-OP-K Range of Motion Start: 10/12/24 09:35 Freq: Status: Active Protocol: Document 10/12/24 09:37 BUSINESS PROCESS ENGINEER (Rec: 10/12/24 10:42 BUSINESS PROCESS ENGINEER Laptop) Lumbar Spine Range of Motion Lumbar Spine Active Percentage Testing Position Standing Flexion 75 Rotation Left 50 Rotation Right 60 Lateral Flexion Left 50 Lateral Flexion Right 40 ROM Limitations Soft Tissue Tightness Hip Goniometric Range of Motion Hip ROM Limitations Hip ROM Limitations Pain PT-OP-L Special Tests Start: 10/12/24 09:35 Freq: Status: Active Protocol: Document 10/12/24 09:37 BUSINESS PROCESS ENGINEER (Rec: 10/12/24 12:11 BUSINESS PROCESS ENGINEER Laptop) Special Tests Lumbar Spine Special Tests Slump Test Results Positive Comments +RLE ext>LLE Straight Leg Raise Test Results Negative Neural Special Tests- Lower Body Sciatic Nerve Tension Test Results positive Comments R>L PT-OP-M Strength Start: 10/12/24 09:35 Freq: Status: Active Protocol: Document 10/12/24 09:37 BUSINESS PROCESS ENGINEER (Rec: 10/12/24 10:42 BUSINESS PROCESS ENGINEER Laptop) Hip Strength Hip Manual Muscle Testing L Flexion (L2) 4+ Good+ Extension (S1) 3 Fair Abduction 4+ Good+ Adduction 4+ Good+ R Flexion (L2) 4 Good Extension (S1) 3- Fair- Abduction 4 Good Adduction 4+ Good+ Knee Strength Knee Manual Muscle Testing L Flexion (S2) 4+ Good+ Extension (L3) 4 Good R Flexion (S2) 4+ Good+ Extension (L3) 4- Good- PT-OP-Q Treatments Start: 10/12/24 09:35 Freq: Status: Active Protocol: Document 10/12/24 09:37 BUSINESS PROCESS ENGINEER (Rec: 10/12/24 10:42 BUSINESS PROCESS ENGINEER Laptop) Therapeutic Exercises Supine Exercises Stretch Supine Exercise Name 1. Single knee to chest 2. double knees side to side Side bilateral Reps/Minutes 30s hold x3 Bilat PT-OP-T Assessment and Plan Start: 10/12/24 09:35 Freq: Status: Active Protocol: Document 10/12/24 09:37 BUSINESS PROCESS ENGINEER (Rec: 10/12/24 10:42 BUSINESS PROCESS ENGINEER Laptop) Physical Therapy Assessment Rehab Potential Rehabilitation Potential Good Evaluation Complexity Number of Personal Factors/Comorbidities 1-2 Number of Body Systems Impaired 1-2 Clinical Presentation at Evaluation Stable Impairments Impairments Activity Tolerance,Balance, Functional Activities, Functional Mobility,Pain, Posture,ROM,Soft Tissue Mobility,Strength Goals 3 Impairment Pain with long distance gait on uneven surface Short Term Goal (STG) Pt will demonstrate continuous gait for 10 mins on uneven surface outside without AD without rest break STG Duration 6 weeks Safety Consultant Goal (LTG) Pt will report ability to walk >2 miles outside on uneven surface without AD without rest break without pain in order to amb on golf course. LTG Duration 12 weeks 2 Impairment pain with transitional movements Short Term Goal (STG) Pt will score 13 on 30s STS test with minimal pain to improve functional transfers STG Duration 6 weeks Penitentiary Goal (LTG) Pt will score 15 on 30s STS test without pain to improve functional transfers LTG Duration 12 weeks 1 Impairment impaired lumbar AROM flex, lateral flex, rotation Short Term Goal (STG) Pt will improve lumbar AROM by ~10% in each direction to improve function STG Duration 6 weeks Safety Consultant Goal (LTG) Pt will demonstrate 15 mins of simulated yard work including forward bending and squatting without rest break needed d/t pain in order to meet functional goal of gardening LTG Duration 12 weeks Assessment Summary Assessment Pt presents with decreased B hip and core strength, decreased standing balance, decreased B hip and lumbar ROM R impairment>L, and decreased soft tissue mobility in R lumbar paraspinals, glute med, and piriformis which all contribute to pt's R lumbar pain and impaired functional mobility. Pt will benefit from skilled PT intervention to address deficits and improve function. Physical Therapy Plan Frequency and Duration Frequency of Treatment 2-3x/wk Duration of treatment (weeks) 12 Plan of Care Start Date 10/12/24 Plan of Care End Date 01/04/25 Therapeutic Interventions Therapeutic Interventions Balance Training,Gait Training ,Home Exercise Program,Manual Therapy,Neuromuscular Re- education,Patient/Caregiver Education,Soft Tissue Mobilization,Taping, Therapeutic Activities, Therapeutic Exercises Modalities Cold Pack/Ice Massage,Electric Stimulation,Hot Packs, Infrared Therapy,Ultrasound Next Visit Focus/Plan Next Note Type Treatment Note Next Visit Plan Continue B hip strengthening, lumbar stretching/spinal ROM, core strengthening, STM to B glutes/lumbar region as needed
--- NOTE | 2024-10-12 18:11 | PT.OPPOC ---
Physical, Occupational & Speech Therapy At [facility] Current Diagnoses Dorsalgia, unspecified (10/12/24) Visit Care Team Role Provider Type Silvano Daswon MD Attending Provider Physician Family Provider Primary Care Provider Referring Provider Specialty: Internal Medicine Address: [address] [place] [address], [id number] Email: [email or web address] Plan Of Care PT-OP-B Current Condition Start: 10/12/24 09:35 Freq: Status: Active Protocol: Document 10/12/24 09:37 BACKWINDER (Rec: 10/12/24 10:42 BACKWINDER Laptop) Current Condition History of Current Condition Current Complaints mid and R lumbar pain with radiation to proximal RLE under glute History of Current Condition Lower 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 Has to take a lot of sitting breaks. Mornings are most painful. Does cardiac rehab 3x/wk treadmill and elliptical 20 mins each for 3 years which doesn't bother his back. Walking in neighborhood ~2 miles increases back pain. Has to hold onto treadmill, feels more off balance than he used to. Pain radiates down RLE after increased activity/ yard work with bending and stooping, radiates down to just below glute. Prior Treatments and Tests Has had PT for back in 2005 with success Treatment Goals Patient/Caregiver Goals To be more active, to do yard work without so many rest breaks, walk longer distances for golf. PT-OP-T Assessment and Plan Start: 10/12/24 09:35 Freq: Status: Active Protocol: Document 10/12/24 09:37 BACKWINDER (Rec: 10/12/24 10:42 BACKWINDER Laptop) Physical Therapy Assessment Rehab Potential Rehabilitation Potential Good Evaluation Complexity Number of Personal Factors/Comorbidities 1-2 Number of Body Systems Impaired 1-2 Clinical Presentation at Evaluation Stable Impairments Impairments Activity Tolerance,Balance, Functional Activities, Functional Mobility,Pain, Posture,ROM,Soft Tissue Mobility,Strength Goals 3 Impairment Pain with long distance gait on uneven surface Short Term Goal (STG) Pt will demonstrate continuous gait for 10 mins on uneven surface outside without AD without rest break STG Duration 6 weeks [facility] Goal (LTG) Pt will report ability to walk >2 miles outside on uneven surface without AD without rest break without pain in order to amb on golf course. LTG Duration 12 weeks 2 Impairment pain with transitional movements Short Term Goal (STG) Pt will score 13 on 30s STS test with minimal pain to improve functional transfers STG Duration 6 weeks [facility] Goal (LTG) Pt will score 15 on 30s STS test without pain to improve functional transfers LTG Duration 12 weeks 1 Impairment impaired lumbar AROM flex, lateral flex, rotation Short Term Goal (STG) Pt will improve lumbar AROM by ~10% in each direction to improve function STG Duration 6 weeks [facility] Goal (LTG) Pt will demonstrate 15 mins of simulated yard work including forward bending and squatting without rest break needed d/t pain in order to meet functional goal of gardening LTG Duration 12 weeks Assessment Summary Assessment Pt presents with decreased B hip and core strength, decreased standing balance, decreased B hip and lumbar ROM R impairment>L, and decreased soft tissue mobility in R lumbar paraspinals, glute med, and piriformis which all contribute to pt's R lumbar pain and impaired functional mobility. Pt will benefit from skilled PT intervention to address deficits and improve function. Physical Therapy Plan Frequency and Duration Frequency of Treatment 2-3x/wk Duration of treatment (weeks) 12 Plan of Care Start Date 10/12/24 Plan of Care End Date 01/04/25 Therapeutic Interventions Therapeutic Interventions Balance Training,Gait Training ,Home Exercise Program,Manual Therapy,Neuromuscular Re- education,Patient/Caregiver Education,Soft Tissue Mobilization,Taping, Therapeutic Activities, Therapeutic Exercises Modalities Cold Pack/Ice Massage,Electric Stimulation,Hot Packs, Infrared Therapy,Ultrasound Next Visit Focus/Plan Next Note Type Treatment Note Next Visit Plan Continue B hip strengthening, lumbar stretching/spinal ROM, core strengthening, STM to B glutes/lumbar region as needed Plan of Care Dates Plan of Care Start Date 10/12/24 Plan of Care End Date 01/04/25 Electronically Signed by: Francy Kolb PT 10/12/24 2289 If you are in agreement with this Plan of Care, please return a signed and dated copy. I have reviewed this Plan of Care and certify that the skilled therapy services above are required to meet the patient?s needs. Physician Signature Date Printed Name and Credentials Clinical Instructor Signature Printed Name and Credentials
--- NOTE | 2024-10-17 10:07 | PT.OTN ---
Current Diagnoses Dorsalgia, unspecified (10/17/24) Physical Therapy Treatment Note PT-OP-A Visit Information Start: 10/12/24 09:35 Freq: Status: Active Protocol: Document 10/17/24 09:07 GENERAL INTERNAL MEDICINE PHYSICIAN (Rec: 10/17/24 10:07 GENERAL INTERNAL MEDICINE PHYSICIAN Laptop) Out-Patient Physical Therapy Visit Information Visit Information Visit Type Treatment Note Visit Start Time 09:02 Visit Stop Time 09:45 Visit Number 2 Number of WALLPAPER CLEANER Visits 0 Precautions Precautions N/A PT-OP-B Current Condition Start: 10/12/24 09:35 Freq: Status: Active Protocol: Document 10/12/24 09:37 GENERAL INTERNAL MEDICINE PHYSICIAN (Rec: 10/12/24 10:42 GENERAL INTERNAL MEDICINE PHYSICIAN Laptop) Current Condition History of Current Condition Current Complaints mid and R lumbar pain with radiation to proximal RLE under glute History of Current Condition Lower 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 Has to take a lot of sitting breaks. Mornings are most painful. Does cardiac rehab 3x/wk treadmill and elliptical 20 mins each for 3 years which doesn't bother his back. Walking in neighborhood ~2 miles increases back pain. Has to hold onto treadmill, feels more off balance than he used to. Pain radiates down RLE after increased activity/ yard work with bending and stooping, radiates down to just below glute. Prior Treatments and Tests Has had PT for back in 2005 with success Treatment Goals Patient/Caregiver Goals To be more active, to do yard work without so many rest breaks, walk longer distances for golf. PT-OP-C Subjective Start: 10/12/24 09:35 Freq: Status: Active Protocol: Document 10/17/24 09:07 GENERAL INTERNAL MEDICINE PHYSICIAN (Rec: 10/17/24 10:07 GENERAL INTERNAL MEDICINE PHYSICIAN Laptop) OP-PT Subjective Patient Comments Patient Comments Pt reports pain currently is 2 -3/10 in R side and a little on the L side of low back, occasionally on weekend pain radiated below glute of L side while he did yard work. Pt also reports he practiced his HEP and they made his back feel good. PT-OP-D Balance Start: 10/12/24 09:35 Freq: Status: Active Protocol: Document 10/12/24 09:37 GENERAL INTERNAL MEDICINE PHYSICIAN (Rec: 10/12/24 10:42 GENERAL INTERNAL MEDICINE PHYSICIAN Laptop) Balance Tests Single Limb Standing Single Limb- Right 4s Single Limb- Left 4s PT-OP-F Manual Assessment Start: 10/12/24 09:35 Freq: Status: Active Protocol: Document 10/12/24 09:37 GENERAL INTERNAL MEDICINE PHYSICIAN (Rec: 10/12/24 12:11 GENERAL INTERNAL MEDICINE PHYSICIAN Laptop) Manual Assessments Soft Tissue Assessment Soft Tissue Mobility Assessment Decreased soft tissue mobility to B glute max, B glute med, B piriformis, R lumbar paraspinals. R limitation >L with TTP at all PT-OP-H Neuro Start: 10/12/24 09:35 Freq: Status: Active Protocol: Document 10/12/24 09:37 GENERAL INTERNAL MEDICINE PHYSICIAN (Rec: 10/12/24 10:42 GENERAL INTERNAL MEDICINE PHYSICIAN Laptop) Sensation Evaluation Comments Summary Comments Numbness occasionally in all toes of B feet PT-OP-J Posture/Palpation/Skin Start: 10/12/24 09:35 Freq: Status: Active Protocol: Document 10/12/24 09:37 GENERAL INTERNAL MEDICINE PHYSICIAN (Rec: 10/12/24 10:42 GENERAL INTERNAL MEDICINE PHYSICIAN Laptop) Posture Evaluation Comments Posture Comments Sitting: L shoulder elevated, forward head, forward rounded B shoulders Standing: increased mid thoracic kyphosis, decreased lumbar lordosis, mild R trunk lateral flex PT-OP-K Range of Motion Start: 10/12/24 09:35 Freq: Status: Active Protocol: Document 10/12/24 09:37 GENERAL INTERNAL MEDICINE PHYSICIAN (Rec: 10/12/24 10:42 GENERAL INTERNAL MEDICINE PHYSICIAN Laptop) Lumbar Spine Range of Motion Lumbar Spine Active Percentage Testing Position Standing Flexion 75 Rotation Left 50 Rotation Right 60 Lateral Flexion Left 50 Lateral Flexion Right 40 ROM Limitations Soft Tissue Tightness Hip Goniometric Range of Motion Hip ROM Limitations Hip ROM Limitations Pain PT-OP-L Special Tests Start: 10/12/24 09:35 Freq: Status: Active Protocol: Document 10/12/24 09:37 GENERAL INTERNAL MEDICINE PHYSICIAN (Rec: 10/12/24 12:11 GENERAL INTERNAL MEDICINE PHYSICIAN Laptop) Special Tests Lumbar Spine Special Tests Slump Test Results Positive Comments +RLE ext>LLE Straight Leg Raise Test Results Negative Neural Special Tests- Lower Body Sciatic Nerve Tension Test Results positive Comments R>L PT-OP-M Strength Start: 10/12/24 09:35 Freq: Status: Active Protocol: Document 10/12/24 09:37 GENERAL INTERNAL MEDICINE PHYSICIAN (Rec: 10/12/24 10:42 GENERAL INTERNAL MEDICINE PHYSICIAN Laptop) Hip Strength Hip Manual Muscle Testing L Flexion (L2) 4+ Good+ Extension (S1) 3 Fair Abduction 4+ Good+ Adduction 4+ Good+ R Flexion (L2) 4 Good Extension (S1) 3- Fair- Abduction 4 Good Adduction 4+ Good+ Knee Strength Knee Manual Muscle Testing L Flexion (S2) 4+ Good+ Extension (L3) 4 Good R Flexion (S2) 4+ Good+ Extension (L3) 4- Good- PT-OP-Q Treatments Start: 10/12/24 09:35 Freq: Status: Active Protocol: Document 10/17/24 09:07 GENERAL INTERNAL MEDICINE PHYSICIAN (Rec: 10/17/24 10:07 GENERAL INTERNAL MEDICINE PHYSICIAN Laptop) Cardio Equipment Recumbent Elliptical ([employer]) Duration (Minutes) 5 Resistance L4 Other NuStep for lumbar ROM warm up Therapeutic Exercises Supine Exercises Bridges Side bilateral Reps/Minutes 10x3 Comments VC for breathing, Added to HEP PPT Supine Exercise Name Post Pelvic Tilts Side bilateral Equipment Used Towel roll for cueing at lumbar Reps/Minutes Hold with 5 breaths x5, progress to 10x3 without hold Comments Mod VC for breathing, Added to HEP Cat-Cow Reps/Minutes 10x5 Comments Mod VC/TC for form>Min VC. Added to HEP Knees side to side Side bilateral Reps/Minutes 10x2 Comments HEP changed from 30s hold to x10 reps Stretch Supine Exercise Name 1. Single knee to chest Side bilateral Reps/Minutes 30s hold x3 Bilat Comments Review of HEP PT-OP-T Assessment and Plan Start: 10/12/24 09:35 Freq: Status: Active Protocol: Document 10/17/24 09:07 GENERAL INTERNAL MEDICINE PHYSICIAN (Rec: 10/17/24 10:07 GENERAL INTERNAL MEDICINE PHYSICIAN Laptop) Physical Therapy Assessment Impairments Impairments Activity Tolerance,Balance, Functional Activities, Functional Mobility,Pain, Posture,ROM,Soft Tissue Mobility,Strength Goals 3 Impairment Pain with long distance gait on uneven surface Short Term Goal (STG) Pt will demonstrate continuous gait for 10 mins on uneven surface outside without AD without rest break STG Duration 6 weeks [employer] Goal (LTG) Pt will report ability to walk >2 miles outside on uneven surface without AD without rest break without pain in order to amb on golf course. LTG Duration 12 weeks 2 Impairment pain with transitional movements Short Term Goal (STG) Pt will score 13 on 30s STS test with minimal pain to improve functional transfers STG Duration 6 weeks [facility] Goal (LTG) Pt will score 15 on 30s STS test without pain to improve functional transfers LTG Duration 12 weeks 1 Impairment impaired lumbar AROM flex, lateral flex, rotation Short Term Goal (STG) Pt will improve lumbar AROM by ~10% in each direction to improve function STG Duration 6 weeks [facility] Goal (LTG) Pt will demonstrate 15 mins of simulated yard work including forward bending and squatting without rest break needed d/t pain in order to meet functional goal of gardening LTG Duration 12 weeks Assessment Summary Assessment Pt tolerated lumbar stretches and ROM well this session with max cues progressing to min cues for cat cow, and tolerated first level of post pelvic tilting for TA activation fairly with mod cues for breathing and form progressing to min cues. Pt demonstrates good motivation for learning and performing HEP and demonstrated progress of applying cues during session. Continue PT POC for lumbar mobility, hip stretching, and hip and core strengthening. Physical Therapy Plan Frequency and Duration Frequency of Treatment 2-3x/wk Duration of treatment (weeks) 12 Plan of Care Start Date 10/12/24 Plan of Care End Date 01/04/25 Therapeutic Interventions Therapeutic Interventions Balance Training,Gait Training ,Home Exercise Program,Manual Therapy,Neuromuscular Re- education,Patient/Caregiver Education,Soft Tissue Mobilization,Taping, Therapeutic Activities, Therapeutic Exercises Modalities Cold Pack/Ice Massage,Electric Stimulation,Hot Packs, Infrared Therapy,Ultrasound Next Visit Focus/Plan Next Note Type Treatment Note Next Visit Plan B hip strengthening/sidelying clamshells/standing 4-way hip, review cat cow and post pelvic tilts, STM to B glutes as needed
--- NOTE | 2024-10-19 09:54 | PT.OTN ---
Current Diagnoses Dorsalgia, unspecified (10/19/24) Physical Therapy Treatment Note PT-OP-A Visit Information Start: 10/12/24 09:35 Freq: Status: Active Protocol: Document 10/19/24 08:33 WARD ASSISTANT (Rec: 10/19/24 09:53 WARD ASSISTANT Laptop) Out-Patient Physical Therapy Visit Information Visit Information Visit Type Treatment Note Visit Start Time 09:00 Visit Stop Time 09:43 Visit Number 3 Number of CIGARETTE MACHINES MECHANIC Visits 0 Precautions Precautions N/A PT-OP-B Current Condition Start: 10/12/24 09:35 Freq: Status: Active Protocol: Document 10/12/24 09:37 WARD ASSISTANT (Rec: 10/12/24 10:42 WARD ASSISTANT Laptop) Current Condition History of Current Condition Current Complaints mid and R lumbar pain with radiation to proximal RLE under glute History of Current Condition Lower 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 Has to take a lot of sitting breaks. Mornings are most painful. Does cardiac rehab 3x/wk treadmill and elliptical 20 mins each for 3 years which doesn't bother his back. Walking in neighborhood ~2 miles increases back pain. Has to hold onto treadmill, feels more off balance than he used to. Pain radiates down RLE after increased activity/ yard work with bending and stooping, radiates down to just below glute. Prior Treatments and Tests Has had PT for back in 2005 with success Treatment Goals Patient/Caregiver Goals To be more active, to do yard work without so many rest breaks, walk longer distances for golf. PT-OP-C Subjective Start: 10/12/24 09:35 Freq: Status: Active Protocol: Document 10/19/24 08:33 WARD ASSISTANT (Rec: 10/19/24 09:53 WARD ASSISTANT Laptop) OP-PT Subjective Patient Comments Patient Comments Pt reports he feels his stretches are helping with his pain and stiffness in the mornings and did not have any increased pain after last session. PT-OP-D Balance Start: 10/12/24 09:35 Freq: Status: Active Protocol: Document 10/12/24 09:37 WARD ASSISTANT (Rec: 10/12/24 10:42 WARD ASSISTANT Laptop) Balance Tests Single Limb Standing Single Limb- Right 4s Single Limb- Left 4s PT-OP-F Manual Assessment Start: 10/12/24 09:35 Freq: Status: Active Protocol: Document 10/12/24 09:37 WARD ASSISTANT (Rec: 10/12/24 12:11 WARD ASSISTANT Laptop) Manual Assessments Soft Tissue Assessment Soft Tissue Mobility Assessment Decreased soft tissue mobility to B glute max, B glute med, B piriformis, R lumbar paraspinals. R limitation >L with TTP at all PT-OP-H Neuro Start: 10/12/24 09:35 Freq: Status: Active Protocol: Document 10/12/24 09:37 WARD ASSISTANT (Rec: 10/12/24 10:42 WARD ASSISTANT Laptop) Sensation Evaluation Comments Summary Comments Numbness occasionally in all toes of B feet PT-OP-J Posture/Palpation/Skin Start: 10/12/24 09:35 Freq: Status: Active Protocol: Document 10/12/24 09:37 WARD ASSISTANT (Rec: 10/12/24 10:42 WARD ASSISTANT Laptop) Posture Evaluation Comments Posture Comments Sitting: L shoulder elevated, forward head, forward rounded B shoulders Standing: increased mid thoracic kyphosis, decreased lumbar lordosis, mild R trunk lateral flex PT-OP-K Range of Motion Start: 10/12/24 09:35 Freq: Status: Active Protocol: Document 10/12/24 09:37 WARD ASSISTANT (Rec: 10/12/24 10:42 WARD ASSISTANT Laptop) Lumbar Spine Range of Motion Lumbar Spine Active Percentage Testing Position Standing Flexion 75 Rotation Left 50 Rotation Right 60 Lateral Flexion Left 50 Lateral Flexion Right 40 ROM Limitations Soft Tissue Tightness Hip Goniometric Range of Motion Hip ROM Limitations Hip ROM Limitations Pain PT-OP-L Special Tests Start: 10/12/24 09:35 Freq: Status: Active Protocol: Document 10/12/24 09:37 WARD ASSISTANT (Rec: 10/12/24 12:11 WARD ASSISTANT Laptop) Special Tests Lumbar Spine Special Tests Slump Test Results Positive Comments +RLE ext>LLE Straight Leg Raise Test Results Negative Neural Special Tests- Lower Body Sciatic Nerve Tension Test Results positive Comments R>L PT-OP-M Strength Start: 10/12/24 09:35 Freq: Status: Active Protocol: Document 10/12/24 09:37 WARD ASSISTANT (Rec: 10/12/24 10:42 WARD ASSISTANT Laptop) Hip Strength Hip Manual Muscle Testing L Flexion (L2) 4+ Good+ Extension (S1) 3 Fair Abduction 4+ Good+ Adduction 4+ Good+ R Flexion (L2) 4 Good Extension (S1) 3- Fair- Abduction 4 Good Adduction 4+ Good+ Knee Strength Knee Manual Muscle Testing L Flexion (S2) 4+ Good+ Extension (L3) 4 Good R Flexion (S2) 4+ Good+ Extension (L3) 4- Good- PT-OP-Q Treatments Start: 10/12/24 09:35 Freq: Status: Active Protocol: Document 10/19/24 08:33 WARD ASSISTANT (Rec: 10/19/24 09:53 WARD ASSISTANT Laptop) Cardio Equipment Recumbent Elliptical ([employer]) Duration (Minutes) 5 Resistance L4 Other NuStep for lumbar ROM warm up Therapeutic Exercises Supine Exercises Bridges Side bilateral Reps/Minutes 10x2 Comments Added core activation, VC x1 for breathing PPT Supine Exercise Name 1. PPT 2. PPT with 5s hold Side bilateral Reps/Minutes 1. x10 2. 10x2 with 5s hold Comments No VC needed for breathing, 5s hold added to HEP Cat-Cow Reps/Minutes x10 Comments Min VC for correct form Sidelying Exercises Clamshells Side bilateral Resistance gravity Reps/Minutes 10x2 Comments TC to hip to prevent roll back , min on L/mod on R Standing Exercises Hip Ext Side bilateral Equipment Used // bars Reps/Minutes x10 Comments Light BUE support, VC for straight knee, prevent trunk lean, and core act Hip Abd Side bilateral Equipment Used // bars Reps/Minutes x10 Comments Light BUE support, VC to prevent trunk lean and core act Marching Side bilateral Equipment Used // bars Reps/Minutes x10 Comments Light BUE support, TC for straight body alignment and core act PT-OP-T Assessment and Plan Start: 10/12/24 09:35 Freq: Status: Active Protocol: Document 10/19/24 08:33 WARD ASSISTANT (Rec: 10/19/24 09:53 WARD ASSISTANT Laptop) Physical Therapy Assessment Impairments Impairments Activity Tolerance,Balance, Functional Activities, Functional Mobility,Pain, Posture,ROM,Soft Tissue Mobility,Strength Goals 3 Impairment Pain with long distance gait on uneven surface Short Term Goal (STG) Pt will demonstrate continuous gait for 10 mins on uneven surface outside without AD without rest break STG Duration 6 weeks Sales Support Engineer Goal (LTG) Pt will report ability to walk >2 miles outside on uneven surface without AD without rest break without pain in order to amb on golf course. LTG Duration 12 weeks 2 Impairment pain with transitional movements Short Term Goal (STG) Pt will score 13 on 30s STS test with minimal pain to improve functional transfers STG Duration 6 weeks [facility] Goal (LTG) Pt will score 15 on 30s STS test without pain to improve functional transfers LTG Duration 12 weeks 1 Impairment impaired lumbar AROM flex, lateral flex, rotation Short Term Goal (STG) Pt will improve lumbar AROM by ~10% in each direction to improve function STG Duration 6 weeks [facility] Goal (LTG) Pt will demonstrate 15 mins of simulated yard work including forward bending and squatting without rest break needed d/t pain in order to meet functional goal of gardening LTG Duration 12 weeks Progress Towards Goals Progress Towards Goals Progressing Toward Goals Progress Comments Improved pain/stiffness in mornings and after performing HEP Assessment Summary Assessment Pt demonstrated PPT and cat- cow from HEP fair with min-mod cues needed, added 5s hold to PPT. Pt tolerated newly added hip strengthening clamshells and standing hip exercises well with moderate compensations but with improving body awareness and without pain. Physical Therapy Plan Frequency and Duration Frequency of Treatment 2-3x/wk Duration of treatment (weeks) 12 Plan of Care Start Date 10/12/24 Plan of Care End Date 01/04/25 Therapeutic Interventions Therapeutic Interventions Balance Training,Gait Training ,Home Exercise Program,Manual Therapy,Neuromuscular Re- education,Patient/Caregiver Education,Soft Tissue Mobilization,Taping, Therapeutic Activities, Therapeutic Exercises Modalities Cold Pack/Ice Massage,Electric Stimulation,Hot Packs, Infrared Therapy,Ultrasound Next Visit Focus/Plan Next Note Type Treatment Note Next Visit Plan Review HEP PPT with 5s hold and cat-cow. STM to B glutes and lumbar paraspinals, prone BLE/UE exts, standing balance with core activation
--- NOTE | 2024-10-24 14:58 | PT.OTN ---
Current Diagnoses Dorsalgia, unspecified (10/24/24) Physical Therapy Treatment Note PT-OP-A Visit Information Start: 10/12/24 09:35 Freq: Status: Active Protocol: Document 10/24/24 13:59 ACTING MANAGER (Rec: 10/24/24 14:58 ACTING MANAGER Laptop) Out-Patient Physical Therapy Visit Information Visit Information Visit Type Treatment Note Visit Start Time 13:45 Visit Stop Time 14:33 Visit Number 4 Number of TECHNICAL STAFF ASSISTANT Visits 0 Precautions Precautions N/A PT-OP-B Current Condition Start: 10/12/24 09:35 Freq: Status: Active Protocol: Document 10/12/24 09:37 ACTING MANAGER (Rec: 10/12/24 10:42 ACTING MANAGER Laptop) Current Condition History of Current Condition Current Complaints mid and R lumbar pain with radiation to proximal RLE under glute History of Current Lower back in the middle, probably arthritis, with Condition radiation, limited in doing yard work. Has to take a lot of sitting breaks. Mornings are most painful. Does cardiac rehab 3x/wk treadmill and elliptical 20 mins each for 3 years which doesn't bother his back. Walking in neighborhood ~2 miles increases back pain. Has to hold onto treadmill, feels more off balance than he used to. Pain radiates down RLE after increased activity/yard work with bending and stooping, radiates down to just below glute. Prior Treatments and Has had PT for back in 2005 with success Tests Treatment Goals Patient/Caregiver To be more active, to do yard work without so many rest Goals breaks, walk longer distances for golf. PT-OP-C Subjective Start: 10/12/24 09:35 Freq: Status: Active Protocol: Document 10/24/24 13:59 ACTING MANAGER (Rec: 10/24/24 14:58 ACTING MANAGER Laptop) OP-PT Subjective Patient Comments Patient Comments Pt reports he continues to do his HEP every morning and continues to have decreased pain throughout the day. Patient Reported Improving Progress PT-OP-D Balance Start: 10/12/24 09:35 Freq: Status: Active Protocol: Document 10/12/24 09:37 ACTING MANAGER (Rec: 10/12/24 10:42 ACTING MANAGER Laptop) Balance Tests Single Limb Standing Single Limb- Right 4s Single Limb- Left 4s PT-OP-F Manual Assessment Start: 10/12/24 09:35 Freq: Status: Active Protocol: Document 10/12/24 09:37 ACTING MANAGER (Rec: 10/12/24 12:11 ACTING MANAGER Laptop) Manual Assessments Soft Tissue Assessment Soft Tissue Mobility Decreased soft tissue mobility to B glute max, B glute Assessment med, B piriformis, R lumbar paraspinals. R limitation > L with TTP at all PT-OP-H Neuro Start: 10/12/24 09:35 Freq: Status: Active Protocol: Document 10/12/24 09:37 ACTING MANAGER (Rec: 10/12/24 10:42 ACTING MANAGER Laptop) Sensation Evaluation Comments Summary Comments Numbness occasionally in all toes of B feet PT-OP-J Posture/Palpation/Skin Start: 10/12/24 09:35 Freq: Status: Active Protocol: Document 10/12/24 09:37 ACTING MANAGER (Rec: 10/12/24 10:42 ACTING MANAGER Laptop) Posture Evaluation Comments Posture Comments Sitting: L shoulder elevated, forward head, forward rounded B shoulders Standing: increased mid thoracic kyphosis, decreased lumbar lordosis, mild R trunk lateral flex PT-OP-K Range of Motion Start: 10/12/24 09:35 Freq: Status: Active Protocol: Document 10/12/24 09:37 ACTING MANAGER (Rec: 10/12/24 10:42 ACTING MANAGER Laptop) Lumbar Spine Range of Motion Lumbar Spine Active Percentage Testing Position Standing Flexion 75 Rotation Left 50 Rotation Right 60 Lateral Flexion Left 50 Lateral Flexion 40 Right ROM Limitations Soft Tissue Tightness Hip Goniometric Range of Motion Hip ROM Limitations Hip ROM Limitations Pain PT-OP-L Special Tests Start: 10/12/24 09:35 Freq: Status: Active Protocol: Document 10/12/24 09:37 ACTING MANAGER (Rec: 10/12/24 12:11 ACTING MANAGER Laptop) Special Tests Lumbar Spine Special Tests Slump Test Results Positive Comments +RLE ext>LLE Straight Leg Raise Test Results Negative Neural Special Tests- Lower Body Sciatic Nerve Tension Test Results positive Comments R>L PT-OP-M Strength Start: 10/12/24 09:35 Freq: Status: Active Protocol: Document 10/12/24 09:37 ACTING MANAGER (Rec: 10/12/24 10:42 ACTING MANAGER Laptop) Hip Strength Hip Manual Muscle Testing L Flexion (L2) 4+ Good+ Extension (S1) 3 Fair Abduction 4+ Good+ Adduction 4+ Good+ R Flexion (L2) 4 Good Extension (S1) 3- Fair- Abduction 4 Good Adduction 4+ Good+ Knee Strength Knee Manual Muscle Testing L Flexion (S2) 4+ Good+ Extension (L3) 4 Good R Flexion (S2) 4+ Good+ Extension (L3) 4- Good- PT-OP-Q Treatments Start: 10/12/24 09:35 Freq: Status: Active Protocol: Document 10/24/24 13:59 ACTING MANAGER (Rec: 10/24/24 14:58 ACTING MANAGER Laptop) Cardio Equipment Recumbent Elliptical ([employer]) Duration (Minutes) 5 Resistance L5 Other NuStep for lumbar ROM warm up Therapeutic Exercises Prone Exercises Thread the Needle Side bilateral Reps/Minutes 30s x2 each side Comments in quadruped, resting on elbow, L<R, added to HEP Thoracic ext stretch Prone Exercise Name Thoracic ext mob on towel roll Side bilateral Equipment Used Towel roll Reps/Minutes 1 min each Comments T7, T8, horizontal towel roll Standing Exercises Wall Ball Rolls Standing Exercise Rolling ball up wall with BUEs above head Name Side bilateral Equipment Used Med exercise ball Reps/Minutes x10 with 5s hold Comments VC for cervical ext when ball overhead Manual Therapy Treatment Consent Patient gave verbal Yes consent for manual treatment Soft Tissue Mobilization STM Body Location L Thoracic and lumbar paraspinals, L glute med/max Mobilization Type Rolling Intensity/Depth Moderate Body Position Prone PT-OP-T Assessment and Plan Start: 10/12/24 09:35 Freq: Status: Active Protocol: Document 10/24/24 13:59 ACTING MANAGER (Rec: 10/24/24 14:58 ACTING MANAGER Laptop) Physical Therapy Assessment Impairments Impairments Activity Tolerance,Balance,Functional Activities, Functional Mobility,Pain,Posture,ROM,Soft Tissue Mobility,Strength Goals 3 Impairment Pain with long distance gait on uneven surface Short Term Goal (STG Pt will demonstrate continuous gait for 10 mins on ) uneven surface outside without AD without rest break STG Duration 6 weeks Truss Builder Goal (LTG) Pt will report ability to walk >2 miles outside on uneven surface without AD without rest break without pain in order to amb on golf course. LTG Duration 12 weeks 2 Impairment pain with transitional movements Short Term Goal (STG Pt will score 13 on 30s STS test with minimal pain to ) improve functional transfers STG Duration 6 weeks Truss Builder Goal (LTG) Pt will score 15 on 30s STS test without pain to improve functional transfers LTG Duration 12 weeks 1 Impairment impaired lumbar AROM flex, lateral flex, rotation Short Term Goal (STG Pt will improve lumbar AROM by ~10% in each direction ) to improve function STG Duration 6 weeks Group Home Goal (LTG) Pt will demonstrate 15 mins of simulated yard work including forward bending and squatting without rest break needed d/t pain in order to meet functional goal of gardening LTG Duration 12 weeks Progress Towards Goals Progress Towards Progressing Toward Goals Goals Progress Comments Improved pain/stiffness in mornings and after performing HEP Assessment Summary Assessment Focus this session on STM to thoracic and lumbar paraspinals and thoracic mobility, pt tolerated new thread the needle and ball roll ups well. Physical Therapy Plan Frequency and Duration Frequency of 2-3x/wk Treatment Duration of 12 treatment (weeks) Plan of Care Start 10/12/24 Date Plan of Care End 01/04/25 Date Therapeutic Interventions Therapeutic Balance Training,Gait Training,Home Exercise Program, Interventions Manual Therapy,Neuromuscular Re-education,Patient/ Caregiver Education,Soft Tissue Mobilization,Taping, Therapeutic Activities,Therapeutic Exercises Modalities Cold Pack/Ice Massage,Electric Stimulation,Hot Packs, Infrared Therapy,Ultrasound Next Visit Focus/Plan Next Note Type Treatment Note Next Visit Plan STM to L paraspinals, thoracic mobilization with towel roll, standing balance with core activation, prone BLE/ UE ext
--- NOTE | 2024-10-26 09:49 | PT.OTN ---
Current Diagnoses Dorsalgia, unspecified (10/26/24) Physical Therapy Treatment Note PT-OP-A Visit Information Start: 10/12/24 09:35 Freq: Status: Active Protocol: Document 10/26/24 09:06 AIRCRAFT CHARTER DISPATCHER (Rec: 10/26/24 09:49 AIRCRAFT CHARTER DISPATCHER Laptop) Out-Patient Physical Therapy Visit Information Visit Information Visit Type Treatment Note Visit Start Time 09:02 Visit Stop Time 09:45 Visit Number 5 Number of BILLING MANAGER Visits 0 Precautions Precautions N/A PT-OP-B Current Condition Start: 10/12/24 09:35 Freq: Status: Active Protocol: Document 10/12/24 09:37 AIRCRAFT CHARTER DISPATCHER (Rec: 10/12/24 10:42 AIRCRAFT CHARTER DISPATCHER Laptop) Current Condition History of Current Condition Current Complaints mid and R lumbar pain with radiation to proximal RLE under glute History of Current Lower back in the middle, probably arthritis, with Condition radiation, limited in doing yard work. Has to take a lot of sitting breaks. Mornings are most painful. Does cardiac rehab 3x/wk treadmill and elliptical 20 mins each for 3 years which doesn't bother his back. Walking in neighborhood ~2 miles increases back pain. Has to hold onto treadmill, feels more off balance than he used to. Pain radiates down RLE after increased activity/yard work with bending and stooping, radiates down to just below glute. Prior Treatments and Has had PT for back in 2005 with success Tests Treatment Goals Patient/Caregiver To be more active, to do yard work without so many rest Goals breaks, walk longer distances for golf. PT-OP-C Subjective Start: 10/12/24 09:35 Freq: Status: Active Protocol: Document 10/26/24 09:06 AIRCRAFT CHARTER DISPATCHER (Rec: 10/26/24 09:49 AIRCRAFT CHARTER DISPATCHER Laptop) OP-PT Subjective Patient Comments Patient Comments Pt reports he did not yet do his HEP this morning d/t coming to PT and pain is at a 2/10. He reports he likes the new thread the needle stretch and feels like it is really helping him loosen up. He also reports he feels the manual therapy on his spinal muscles last session helped to reduce his stiffness and pain. Patient Reported Improving Progress PT-OP-D Balance Start: 10/12/24 09:35 Freq: Status: Active Protocol: Document 10/12/24 09:37 AIRCRAFT CHARTER DISPATCHER (Rec: 10/12/24 10:42 AIRCRAFT CHARTER DISPATCHER Laptop) Balance Tests Single Limb Standing Single Limb- Right 4s Single Limb- Left 4s PT-OP-F Manual Assessment Start: 10/12/24 09:35 Freq: Status: Active Protocol: Document 10/12/24 09:37 AIRCRAFT CHARTER DISPATCHER (Rec: 10/12/24 12:11 AIRCRAFT CHARTER DISPATCHER Laptop) Manual Assessments Soft Tissue Assessment Soft Tissue Mobility Decreased soft tissue mobility to B glute max, B glute Assessment med, B piriformis, R lumbar paraspinals. R limitation > L with TTP at all PT-OP-H Neuro Start: 10/12/24 09:35 Freq: Status: Active Protocol: Document 10/12/24 09:37 AIRCRAFT CHARTER DISPATCHER (Rec: 10/12/24 10:42 AIRCRAFT CHARTER DISPATCHER Laptop) Sensation Evaluation Comments Summary Comments Numbness occasionally in all toes of B feet PT-OP-J Posture/Palpation/Skin Start: 10/12/24 09:35 Freq: Status: Active Protocol: Document 10/12/24 09:37 AIRCRAFT CHARTER DISPATCHER (Rec: 10/12/24 10:42 AIRCRAFT CHARTER DISPATCHER Laptop) Posture Evaluation Comments Posture Comments Sitting: L shoulder elevated, forward head, forward rounded B shoulders Standing: increased mid thoracic kyphosis, decreased lumbar lordosis, mild R trunk lateral flex PT-OP-K Range of Motion Start: 10/12/24 09:35 Freq: Status: Active Protocol: Document 10/12/24 09:37 AIRCRAFT CHARTER DISPATCHER (Rec: 10/12/24 10:42 AIRCRAFT CHARTER DISPATCHER Laptop) Lumbar Spine Range of Motion Lumbar Spine Active Percentage Testing Position Standing Flexion 75 Rotation Left 50 Rotation Right 60 Lateral Flexion Left 50 Lateral Flexion 40 Right ROM Limitations Soft Tissue Tightness Hip Goniometric Range of Motion Hip ROM Limitations Hip ROM Limitations Pain PT-OP-L Special Tests Start: 10/12/24 09:35 Freq: Status: Active Protocol: Document 10/12/24 09:37 AIRCRAFT CHARTER DISPATCHER (Rec: 10/12/24 12:11 AIRCRAFT CHARTER DISPATCHER Laptop) Special Tests Lumbar Spine Special Tests Slump Test Results Positive Comments +RLE ext>LLE Straight Leg Raise Test Results Negative Neural Special Tests- Lower Body Sciatic Nerve Tension Test Results positive Comments R>L PT-OP-M Strength Start: 10/12/24 09:35 Freq: Status: Active Protocol: Document 10/12/24 09:37 AIRCRAFT CHARTER DISPATCHER (Rec: 10/12/24 10:42 AIRCRAFT CHARTER DISPATCHER Laptop) Hip Strength Hip Manual Muscle Testing L Flexion (L2) 4+ Good+ Extension (S1) 3 Fair Abduction 4+ Good+ Adduction 4+ Good+ R Flexion (L2) 4 Good Extension (S1) 3- Fair- Abduction 4 Good Adduction 4+ Good+ Knee Strength Knee Manual Muscle Testing L Flexion (S2) 4+ Good+ Extension (L3) 4 Good R Flexion (S2) 4+ Good+ Extension (L3) 4- Good- PT-OP-Q Treatments Start: 10/12/24 09:35 Freq: Status: Active Protocol: Document 10/26/24 09:06 AIRCRAFT CHARTER DISPATCHER (Rec: 10/26/24 09:49 AIRCRAFT CHARTER DISPATCHER Laptop) Cardio Equipment Recumbent Elliptical ([employer]) Duration (Minutes) 5 Resistance L3 Seat Position 7 Other NuStep BUE and BLE warm up with greater knee flex Therapeutic Exercises Supine Exercises PPT Supine Exercise Name 1. PPT 10s hold 2. PPT hold with hooklying single leg fall out Side bilateral Reps/Minutes 1. x1 10s hold 2. 10x2 Comments moderate cueing for maintaining TA activation Prone Exercises LE ext Prone Exercise Name straight leg lifts Side bilateral Reps/Minutes 10x2 Comments VC on first set to reduce pelvic rotation Thread the Needle Side bilateral Reps/Minutes 30s each Comments review of HEP Manual Therapy Treatment Consent Patient gave verbal Yes consent for manual treatment Soft Tissue Mobilization STM Body Location B lumbar and thoracic paraspinals, R glute med Mobilization Type Rolling Intensity/Depth Moderate Body Position Prone Comments few trigger points to R lumbar, ~5 to L lumbar/thoracic paraspinals Joint Mobilizations Lumbar Joint L2-L5 Direction PA Grade III Body Position Prone Reps/Duration x10 each Comments for improved lumbar ext PT-OP-T Assessment and Plan Start: 10/12/24 09:35 Freq: Status: Active Protocol: Document 10/26/24 09:06 AIRCRAFT CHARTER DISPATCHER (Rec: 10/26/24 09:49 AIRCRAFT CHARTER DISPATCHER Laptop) Physical Therapy Assessment Impairments Impairments Activity Tolerance,Balance,Functional Activities, Functional Mobility,Pain,Posture,ROM,Soft Tissue Mobility,Strength Goals 3 Impairment Pain with long distance gait on uneven surface Short Term Goal (STG Pt will demonstrate continuous gait for 10 mins on ) uneven surface outside without AD without rest break STG Duration 6 weeks Longterm Goal (LTG) Pt will report ability to walk >2 miles outside on uneven surface without AD without rest break without pain in order to amb on golf course. LTG Duration 12 weeks 2 Impairment pain with transitional movements Short Term Goal (STG Pt will score 13 on 30s STS test with minimal pain to ) improve functional transfers STG Duration 6 weeks Longterm Goal (LTG) Pt will score 15 on 30s STS test without pain to improve functional transfers LTG Duration 12 weeks 1 Impairment impaired lumbar AROM flex, lateral flex, rotation Short Term Goal (STG Pt will improve lumbar AROM by ~10% in each direction ) to improve function STG Duration 6 weeks Renewals Specialist Goal (LTG) Pt will demonstrate 15 mins of simulated yard work including forward bending and squatting without rest break needed d/t pain in order to meet functional goal of gardening LTG Duration 12 weeks Progress Towards Goals Progress Towards Progressing Toward Goals Goals Progress Comments Improved pain/stiffness in morning without doing HEP first Assessment Summary Assessment Pt tolerated STM at beginning of session for improved mobility throughout session. Tolerated introduction to prone BLE ext with improved pelvis stabilization and advancement of TA activation. Physical Therapy Plan Frequency and Duration Frequency of 2-3x/wk Treatment Duration of 12 treatment (weeks) Plan of Care Start 10/12/24 Date Plan of Care End 01/04/25 Date Therapeutic Interventions Therapeutic Balance Training,Gait Training,Home Exercise Program, Interventions Manual Therapy,Neuromuscular Re-education,Patient/ Caregiver Education,Soft Tissue Mobilization,Taping, Therapeutic Activities,Therapeutic Exercises Modalities Cold Pack/Ice Massage,Electric Stimulation,Hot Packs, Infrared Therapy,Ultrasound Next Visit Focus/Plan Next Note Type Treatment Note Next Visit Plan STM to B paraspinals to start, review prone LE ext and progress UEs as tolerated, PPT hold with knee fall out review
--- NOTE | 2024-11-01 11:45 | PT.OTN ---
Current Diagnoses Dorsalgia, unspecified (11/01/24) Physical Therapy Treatment Note PT-OP-A Visit Information Start: 10/12/24 09:35 Freq: Status: Active Protocol: Document 11/01/24 10:48 PSYCHOMETRIST (Rec: 11/01/24 11:45 PSYCHOMETRIST Laptop) Out-Patient Physical Therapy Visit Information Visit Information Visit Type Treatment Note Visit Start Time 10:48 Visit Stop Time 11:30 Visit Number 6 Number of HEAD OF PRECISION TARGETING Visits 0 Precautions Precautions N/A PT-OP-B Current Condition Start: 10/12/24 09:35 Freq: Status: Active Protocol: Document 10/12/24 09:37 PSYCHOMETRIST (Rec: 10/12/24 10:42 PSYCHOMETRIST Laptop) Current Condition History of Current Condition Current Complaints mid and R lumbar pain with radiation to proximal RLE under glute History of Current Lower back in the middle, probably arthritis, with Condition radiation, limited in doing yard work. Has to take a lot of sitting breaks. Mornings are most painful. Does cardiac rehab 3x/wk treadmill and elliptical 20 mins each for 3 years which doesn't bother his back. Walking in neighborhood ~2 miles increases back pain. Has to hold onto treadmill, feels more off balance than he used to. Pain radiates down RLE after increased activity/yard work with bending and stooping, radiates down to just below glute. Prior Treatments and Has had PT for back in 2005 with success Tests Treatment Goals Patient/Caregiver To be more active, to do yard work without so many rest Goals breaks, walk longer distances for golf. PT-OP-C Subjective Start: 10/12/24 09:35 Freq: Status: Active Protocol: Document 11/01/24 10:48 PSYCHOMETRIST (Rec: 11/01/24 11:45 PSYCHOMETRIST Laptop) OP-PT Subjective Patient Comments Patient Comments Pt reports current 06/02 pain to low back across both sides. States he was doing yard work and mowing the lawn this weekend and was able to do it without pain. Patient Reported Improving Progress PT-OP-D Balance Start: 10/12/24 09:35 Freq: Status: Active Protocol: Document 10/12/24 09:37 PSYCHOMETRIST (Rec: 10/12/24 10:42 PSYCHOMETRIST Laptop) Balance Tests Single Limb Standing Single Limb- Right 4s Single Limb- Left 4s PT-OP-F Manual Assessment Start: 10/12/24 09:35 Freq: Status: Active Protocol: Document 10/12/24 09:37 PSYCHOMETRIST (Rec: 10/12/24 12:11 PSYCHOMETRIST Laptop) Manual Assessments Soft Tissue Assessment Soft Tissue Mobility Decreased soft tissue mobility to B glute max, B glute Assessment med, B piriformis, R lumbar paraspinals. R limitation > L with TTP at all PT-OP-H Neuro Start: 10/12/24 09:35 Freq: Status: Active Protocol: Document 10/12/24 09:37 PSYCHOMETRIST (Rec: 10/12/24 10:42 PSYCHOMETRIST Laptop) Sensation Evaluation Comments Summary Comments Numbness occasionally in all toes of B feet PT-OP-J Posture/Palpation/Skin Start: 10/12/24 09:35 Freq: Status: Active Protocol: Document 10/12/24 09:37 PSYCHOMETRIST (Rec: 10/12/24 10:42 PSYCHOMETRIST Laptop) Posture Evaluation Comments Posture Comments Sitting: L shoulder elevated, forward head, forward rounded B shoulders Standing: increased mid thoracic kyphosis, decreased lumbar lordosis, mild R trunk lateral flex PT-OP-K Range of Motion Start: 10/12/24 09:35 Freq: Status: Active Protocol: Document 10/12/24 09:37 PSYCHOMETRIST (Rec: 10/12/24 10:42 PSYCHOMETRIST Laptop) Lumbar Spine Range of Motion Lumbar Spine Active Percentage Testing Position Standing Flexion 75 Rotation Left 50 Rotation Right 60 Lateral Flexion Left 50 Lateral Flexion 40 Right ROM Limitations Soft Tissue Tightness Hip Goniometric Range of Motion Hip ROM Limitations Hip ROM Limitations Pain PT-OP-L Special Tests Start: 10/12/24 09:35 Freq: Status: Active Protocol: Document 10/12/24 09:37 PSYCHOMETRIST (Rec: 10/12/24 12:11 PSYCHOMETRIST Laptop) Special Tests Lumbar Spine Special Tests Slump Test Results Positive Comments +RLE ext>LLE Straight Leg Raise Test Results Negative Neural Special Tests- Lower Body Sciatic Nerve Tension Test Results positive Comments R>L PT-OP-M Strength Start: 10/12/24 09:35 Freq: Status: Active Protocol: Document 10/12/24 09:37 PSYCHOMETRIST (Rec: 10/12/24 10:42 PSYCHOMETRIST Laptop) Hip Strength Hip Manual Muscle Testing L Flexion (L2) 4+ Good+ Extension (S1) 3 Fair Abduction 4+ Good+ Adduction 4+ Good+ R Flexion (L2) 4 Good Extension (S1) 3- Fair- Abduction 4 Good Adduction 4+ Good+ Knee Strength Knee Manual Muscle Testing L Flexion (S2) 4+ Good+ Extension (L3) 4 Good R Flexion (S2) 4+ Good+ Extension (L3) 4- Good- PT-OP-Q Treatments Start: 10/12/24 09:35 Freq: Status: Active Protocol: Document 11/01/24 10:48 PSYCHOMETRIST (Rec: 11/01/24 11:45 PSYCHOMETRIST Laptop) Cardio Equipment Recumbent Stepper (Sci-Fit) Duration (Minutes) 5 Resistance 3 Other For warm up of BUEs and BLEs Therapeutic Exercises Prone Exercises Child's Pose Prone Exercise Name Modified d/t pain in B shoulders Reps/Minutes 1 min x2 Cat Cow Reps/Minutes x10 Comments No cueing needed for form this session Standing Exercises Anti-Rotation Standing Exercise horizontal pull across, diagonal pull down Name Side bilateral Resistance navy TB on wall Reps/Minutes x10 each Comments TC to prevent lumbar rotation Manual Therapy Treatment Consent Patient gave verbal Yes consent for manual treatment Soft Tissue Mobilization STM Body Location B lumbar paraspinals Mobilization Type Cross-Friction,Rolling Intensity/Depth Deep Body Position Prone Neuro Re-Education Treatment Balance Activities Foam Details Standing on foam toe taps onto stair Surface On foam Equipment 6 stair and B HR Reps/Duration x10 each side Comments VC for upright posture and TA activation, SBA without UE support PT-OP-T Assessment and Plan Start: 10/12/24 09:35 Freq: Status: Active Protocol: Document 11/01/24 10:48 PSYCHOMETRIST (Rec: 11/01/24 11:45 PSYCHOMETRIST Laptop) Physical Therapy Assessment Impairments Impairments Activity Tolerance,Balance,Functional Activities, Functional Mobility,Pain,Posture,ROM,Soft Tissue Mobility,Strength Goals 3 Impairment Pain with long distance gait on uneven surface Short Term Goal (STG Pt will demonstrate continuous gait for 10 mins on ) uneven surface outside without AD without rest break STG Duration 6 weeks Master Fisher Goal (LTG) Pt will report ability to walk >2 miles outside on uneven surface without AD without rest break without pain in order to amb on golf course. LTG Duration 12 weeks 2 Impairment pain with transitional movements Short Term Goal (STG Pt will score 13 on 30s STS test with minimal pain to ) improve functional transfers STG Duration 6 weeks Retirement Goal (LTG) Pt will score 15 on 30s STS test without pain to improve functional transfers LTG Duration 12 weeks 1 Impairment impaired lumbar AROM flex, lateral flex, rotation Short Term Goal (STG Pt will improve lumbar AROM by ~10% in each direction ) to improve function STG Duration 6 weeks Master Fisher Goal (LTG) Pt will demonstrate 15 mins of simulated yard work including forward bending and squatting without rest break needed d/t pain in order to meet functional goal of gardening LTG Duration 12 weeks Progress Towards Goals Progress Towards Progressing Toward Goals Goals Progress Comments Able to do yard work without pain Assessment Summary Assessment Pt with improved soft tissue mobility to B lumbar paraspinals after STM. Pt is also tolerating newly added child's pose with modification d/t B shoulder pain and core strengthening via anti-rotation exercises . Pt is progressing well, continue core strengthening and spinal ROM. Physical Therapy Plan Frequency and Duration Frequency of 2-3x/wk Treatment Duration of 12 treatment (weeks) Plan of Care Start 10/12/24 Date Plan of Care End 01/04/25 Date Therapeutic Interventions Therapeutic Balance Training,Gait Training,Home Exercise Program, Interventions Manual Therapy,Neuromuscular Re-education,Patient/ Caregiver Education,Soft Tissue Mobilization,Taping, Therapeutic Activities,Therapeutic Exercises Modalities Cold Pack/Ice Massage,Electric Stimulation,Hot Packs, Infrared Therapy,Ultrasound Next Visit Focus/Plan Next Note Type Treatment Note Next Visit Plan Pec stretch, thoracic ext ROM/stretches, scapular retraction exercises, chin tucks
--- NOTE | 2024-11-07 09:03 | PT.OTN ---
Current Diagnoses Dorsalgia, unspecified (11/07/24) Physical Therapy Treatment Note PT-OP-A Visit Information Start: 10/12/24 09:35 Freq: Status: Active Protocol: Document 11/07/24 08:03 SHADING PAINTER (Rec: 11/07/24 09:02 SHADING PAINTER Laptop) Out-Patient Physical Therapy Visit Information Visit Information Visit Type Treatment Note Visit Start Time 08:15 Visit Stop Time 09:00 Visit Number 7 Number of ARTIST MANAGER Visits 0 Precautions Precautions N/A PT-OP-B Current Condition Start: 10/12/24 09:35 Freq: Status: Active Protocol: Document 10/12/24 09:37 SHADING PAINTER (Rec: 10/12/24 10:42 SHADING PAINTER Laptop) Current Condition History of Current Condition Current Complaints mid and R lumbar pain with radiation to proximal RLE under glute History of Current Lower back in the middle, probably arthritis, with Condition radiation, limited in doing yard work. Has to take a lot of sitting breaks. Mornings are most painful. Does cardiac rehab 3x/wk treadmill and elliptical 20 mins each for 3 years which doesn't bother his back. Walking in neighborhood ~2 miles increases back pain. Has to hold onto treadmill, feels more off balance than he used to. Pain radiates down RLE after increased activity/yard work with bending and stooping, radiates down to just below glute. Prior Treatments and Has had PT for back in 2005 with success Tests Treatment Goals Patient/Caregiver To be more active, to do yard work without so many rest Goals breaks, walk longer distances for golf. PT-OP-C Subjective Start: 10/12/24 09:35 Freq: Status: Active Protocol: Document 11/07/24 08:03 SHADING PAINTER (Rec: 11/07/24 09:02 SHADING PAINTER Laptop) OP-PT Subjective Patient Comments Patient Comments Pt reports he did not do HEP this morning because of early PT appointment. He ambs into session with 1/10 pain to B low back. Golfed over the weekend for the first time since starting PT and low back felt a little painful and weak. Patient Reported Improving Progress PT-OP-D Balance Start: 10/12/24 09:35 Freq: Status: Active Protocol: Document 10/12/24 09:37 SHADING PAINTER (Rec: 10/12/24 10:42 SHADING PAINTER Laptop) Balance Tests Single Limb Standing Single Limb- Right 4s Single Limb- Left 4s PT-OP-F Manual Assessment Start: 10/12/24 09:35 Freq: Status: Active Protocol: Document 10/12/24 09:37 SHADING PAINTER (Rec: 10/12/24 12:11 SHADING PAINTER Laptop) Manual Assessments Soft Tissue Assessment Soft Tissue Mobility Decreased soft tissue mobility to B glute max, B glute Assessment med, B piriformis, R lumbar paraspinals. R limitation > L with TTP at all PT-OP-H Neuro Start: 10/12/24 09:35 Freq: Status: Active Protocol: Document 10/12/24 09:37 SHADING PAINTER (Rec: 10/12/24 10:42 SHADING PAINTER Laptop) Sensation Evaluation Comments Summary Comments Numbness occasionally in all toes of B feet PT-OP-J Posture/Palpation/Skin Start: 10/12/24 09:35 Freq: Status: Active Protocol: Document 10/12/24 09:37 SHADING PAINTER (Rec: 10/12/24 10:42 SHADING PAINTER Laptop) Posture Evaluation Comments Posture Comments Sitting: L shoulder elevated, forward head, forward rounded B shoulders Standing: increased mid thoracic kyphosis, decreased lumbar lordosis, mild R trunk lateral flex PT-OP-K Range of Motion Start: 10/12/24 09:35 Freq: Status: Active Protocol: Document 10/12/24 09:37 SHADING PAINTER (Rec: 10/12/24 10:42 SHADING PAINTER Laptop) Lumbar Spine Range of Motion Lumbar Spine Active Percentage Testing Position Standing Flexion 75 Rotation Left 50 Rotation Right 60 Lateral Flexion Left 50 Lateral Flexion 40 Right ROM Limitations Soft Tissue Tightness Hip Goniometric Range of Motion Hip ROM Limitations Hip ROM Limitations Pain PT-OP-L Special Tests Start: 10/12/24 09:35 Freq: Status: Active Protocol: Document 10/12/24 09:37 SHADING PAINTER (Rec: 10/12/24 12:11 SHADING PAINTER Laptop) Special Tests Lumbar Spine Special Tests Slump Test Results Positive Comments +RLE ext>LLE Straight Leg Raise Test Results Negative Neural Special Tests- Lower Body Sciatic Nerve Tension Test Results positive Comments R>L PT-OP-M Strength Start: 10/12/24 09:35 Freq: Status: Active Protocol: Document 10/12/24 09:37 SHADING PAINTER (Rec: 10/12/24 10:42 SHADING PAINTER Laptop) Hip Strength Hip Manual Muscle Testing L Flexion (L2) 4+ Good+ Extension (S1) 3 Fair Abduction 4+ Good+ Adduction 4+ Good+ R Flexion (L2) 4 Good Extension (S1) 3- Fair- Abduction 4 Good Adduction 4+ Good+ Knee Strength Knee Manual Muscle Testing L Flexion (S2) 4+ Good+ Extension (L3) 4 Good R Flexion (S2) 4+ Good+ Extension (L3) 4- Good- PT-OP-Q Treatments Start: 10/12/24 09:35 Freq: Status: Active Protocol: Document 11/07/24 08:03 SHADING PAINTER (Rec: 11/07/24 09:02 SHADING PAINTER Laptop) Cardio Equipment Recumbent Elliptical (BiodTrueAccord) Duration (Minutes) 5 Resistance L5 Seat Position 4 Other Bike for BLE warm up/knee lumbar ROM Therapeutic Exercises Supine Exercises Chin Tucks Reps/Minutes 10x3 Comments Mod cueing for form Sidelying Exercises Pallof Press Sidelying Exercise punch out and pull to chest Name Side bilateral Resistance L3 resistance Equipment Used TB Reps/Minutes 10x2 each side Comments VC for core activation and scap retraction Standing Exercises Scap Retract Side bilateral Equipment Used mirror for cueing of posture Reps/Minutes 10x2 Pec Stretch Standing Exercise Doorway Name Side right Reps/Minutes 60s x2 Comments Attempted L with too much pressure at shoulder PT-OP-T Assessment and Plan Start: 10/12/24 09:35 Freq: Status: Active Protocol: Document 11/07/24 08:03 SHADING PAINTER (Rec: 11/07/24 09:02 SHADING PAINTER Laptop) Physical Therapy Assessment Impairments Impairments Activity Tolerance,Balance,Functional Activities, Functional Mobility,Pain,Posture,ROM,Soft Tissue Mobility,Strength Goals 3 Impairment Pain with long distance gait on uneven surface Short Term Goal (STG Pt will demonstrate continuous gait for 10 mins on ) uneven surface outside without AD without rest break STG Duration 6 weeks Half-Way Goal (LTG) Pt will report ability to walk >2 miles outside on uneven surface without AD without rest break without pain in order to amb on golf course. LTG Duration 12 weeks 2 Impairment pain with transitional movements Short Term Goal (STG Pt will score 13 on 30s STS test with minimal pain to ) improve functional transfers STG Duration 6 weeks Half-Way Goal (LTG) Pt will score 15 on 30s STS test without pain to improve functional transfers LTG Duration 12 weeks 1 Impairment impaired lumbar AROM flex, lateral flex, rotation Short Term Goal (STG Pt will improve lumbar AROM by ~10% in each direction ) to improve function STG Duration 6 weeks Half-Way Goal (LTG) Pt will demonstrate 15 mins of simulated yard work including forward bending and squatting without rest break needed d/t pain in order to meet functional goal of gardening LTG Duration 12 weeks Progress Towards Goals Progress Towards Progressing Toward Goals Goals Assessment Summary Assessment Pt is progressing with spinal and hip ROM however still feeling weakness when performing activities such as golf. Pt tolerated working on postural stretching and strengthening this session and anti-rotation lumbar/ core strengthening. Physical Therapy Plan Frequency and Duration Frequency of 2-3x/wk Treatment Duration of 12 treatment (weeks) Plan of Care Start 10/12/24 Date Plan of Care End 01/04/25 Date Therapeutic Interventions Therapeutic Balance Training,Gait Training,Home Exercise Program, Interventions Manual Therapy,Neuromuscular Re-education,Patient/ Caregiver Education,Soft Tissue Mobilization,Taping, Therapeutic Activities,Therapeutic Exercises Modalities Cold Pack/Ice Massage,Electric Stimulation,Hot Packs, Infrared Therapy,Ultrasound Next Visit Focus/Plan Next Note Type Treatment Note Next Visit Plan Review pec stretch/scap retraction/chin tucks/pallof press to add to HEP. Progress scap retract with TB as needed
--- NOTE | 2024-11-09 22:43 | PT.OTN ---
Current Diagnoses Dorsalgia, unspecified (11/09/24) Physical Therapy Treatment Note PT-OP-A Visit Information Start: 10/12/24 09:35 Freq: Status: Active Protocol: Document 11/09/24 08:17 PRODUCT PICKER (Rec: 11/09/24 09:06 PRODUCT PICKER Laptop) Out-Patient Physical Therapy Visit Information Visit Information Visit Type Treatment Note Visit Start Time 08:16 Visit Stop Time 09:02 Visit Number 8 Number of MANAGER WIND Visits 0 PT-OP-B Current Condition Start: 10/12/24 09:35 Freq: Status: Active Protocol: Document 10/12/24 09:37 PRODUCT PICKER (Rec: 10/12/24 10:42 PRODUCT PICKER Laptop) Current Condition History of Current Condition Current Complaints mid and R lumbar pain with radiation to proximal RLE under glute History of Current Lower back in the middle, probably arthritis, with Condition radiation, limited in doing yard work. Has to take a lot of sitting breaks. Mornings are most painful. Does cardiac rehab 3x/wk treadmill and elliptical 20 mins each for 3 years which doesn't bother his back. Walking in neighborhood ~2 miles increases back pain. Has to hold onto treadmill, feels more off balance than he used to. Pain radiates down RLE after increased activity/yard work with bending and stooping, radiates down to just below glute. Prior Treatments and Has had PT for back in 2005 with success Tests Treatment Goals Patient/Caregiver To be more active, to do yard work without so many rest Goals breaks, walk longer distances for golf. PT-OP-C Subjective Start: 10/12/24 09:35 Freq: Status: Active Protocol: Document 11/09/24 08:17 PRODUCT PICKER (Rec: 11/09/24 09:06 PRODUCT PICKER Laptop) OP-PT Subjective Patient Comments Patient Comments Pt reports he got up early to do his HEP prior to PT session today, pain is increased when he wakes up and reduces after HEP. Currently pain persists at 2/10 to B low back. Patient Reported Improving Progress PT-OP-D Balance Start: 10/12/24 09:35 Freq: Status: Active Protocol: Document 10/12/24 09:37 PRODUCT PICKER (Rec: 10/12/24 10:42 PRODUCT PICKER Laptop) Balance Tests Single Limb Standing Single Limb- Right 4s Single Limb- Left 4s PT-OP-F Manual Assessment Start: 10/12/24 09:35 Freq: Status: Active Protocol: Document 10/12/24 09:37 PRODUCT PICKER (Rec: 10/12/24 12:11 PRODUCT PICKER Laptop) Manual Assessments Soft Tissue Assessment Soft Tissue Mobility Decreased soft tissue mobility to B glute max, B glute Assessment med, B piriformis, R lumbar paraspinals. R limitation > L with TTP at all PT-OP-H Neuro Start: 10/12/24 09:35 Freq: Status: Active Protocol: Document 10/12/24 09:37 PRODUCT PICKER (Rec: 10/12/24 10:42 PRODUCT PICKER Laptop) Sensation Evaluation Comments Summary Comments Numbness occasionally in all toes of B feet PT-OP-J Posture/Palpation/Skin Start: 10/12/24 09:35 Freq: Status: Active Protocol: Document 10/12/24 09:37 PRODUCT PICKER (Rec: 10/12/24 10:42 PRODUCT PICKER Laptop) Posture Evaluation Comments Posture Comments Sitting: L shoulder elevated, forward head, forward rounded B shoulders Standing: increased mid thoracic kyphosis, decreased lumbar lordosis, mild R trunk lateral flex PT-OP-K Range of Motion Start: 10/12/24 09:35 Freq: Status: Active Protocol: Document 10/12/24 09:37 PRODUCT PICKER (Rec: 10/12/24 10:42 PRODUCT PICKER Laptop) Lumbar Spine Range of Motion Lumbar Spine Active Percentage Testing Position Standing Flexion 75 Rotation Left 50 Rotation Right 60 Lateral Flexion Left 50 Lateral Flexion 40 Right ROM Limitations Soft Tissue Tightness Hip Goniometric Range of Motion Hip ROM Limitations Hip ROM Limitations Pain PT-OP-L Special Tests Start: 10/12/24 09:35 Freq: Status: Active Protocol: Document 10/12/24 09:37 PRODUCT PICKER (Rec: 10/12/24 12:11 PRODUCT PICKER Laptop) Special Tests Lumbar Spine Special Tests Slump Test Results Positive Comments +RLE ext>LLE Straight Leg Raise Test Results Negative Neural Special Tests- Lower Body Sciatic Nerve Tension Test Results positive Comments R>L PT-OP-M Strength Start: 10/12/24 09:35 Freq: Status: Active Protocol: Document 10/12/24 09:37 PRODUCT PICKER (Rec: 10/12/24 10:42 PRODUCT PICKER Laptop) Hip Strength Hip Manual Muscle Testing L Flexion (L2) 4+ Good+ Extension (S1) 3 Fair Abduction 4+ Good+ Adduction 4+ Good+ R Flexion (L2) 4 Good Extension (S1) 3- Fair- Abduction 4 Good Adduction 4+ Good+ Knee Strength Knee Manual Muscle Testing L Flexion (S2) 4+ Good+ Extension (L3) 4 Good R Flexion (S2) 4+ Good+ Extension (L3) 4- Good- PT-OP-Q Treatments Start: 10/12/24 09:35 Freq: Status: Active Protocol: Document 11/09/24 08:17 PRODUCT PICKER (Rec: 11/09/24 09:06 PRODUCT PICKER Laptop) Cardio Equipment Elliptical Duration (Minutes) 2 Resistance L1 Other for warm up with 2 min walking cool down, limited by fatigue Therapeutic Exercises Supine Exercises Chin Tucks Supine Exercise Name Added to HEP Reps/Minutes 10x3 Comments Min cueing for form Standing Exercises Scap Retract Standing Exercise 1. without resist (added to HEP) 2. with TB Name Side bilateral Resistance L1 TB Equipment Used mirror for cueing of posture Reps/Minutes 10x3 without resist, 10x2 with TB Comments no VC needed without resist, mod TC with TB Pec Stretch Standing Exercise Doorway Name Side right Reps/Minutes 60s x2 Comments Added to HEP Manual Therapy Treatment Consent Patient gave verbal Yes consent for manual treatment Soft Tissue Mobilization STM Body Location B lumbar paraspinals Mobilization Type Cross-Friction,Rolling Intensity/Depth Deep Body Position Prone Comments R side more than L PT-OP-T Assessment and Plan Start: 10/12/24 09:35 Freq: Status: Active Protocol: Document 11/09/24 08:17 PRODUCT PICKER (Rec: 11/09/24 09:06 PRODUCT PICKER Laptop) Physical Therapy Assessment Impairments Impairments Activity Tolerance,Balance,Functional Activities, Functional Mobility,Pain,Posture,ROM,Soft Tissue Mobility,Strength Goals 3 Impairment Pain with long distance gait on uneven surface Short Term Goal (STG Pt will demonstrate continuous gait for 10 mins on ) uneven surface outside without AD without rest break STG Duration 6 weeks Shelter Goal (LTG) Pt will report ability to walk >2 miles outside on uneven surface without AD without rest break without pain in order to amb on golf course. LTG Duration 12 weeks 2 Impairment pain with transitional movements Short Term Goal (STG Pt will score 13 on 30s STS test with minimal pain to ) improve functional transfers STG Duration 6 weeks Shelter Goal (LTG) Pt will score 15 on 30s STS test without pain to improve functional transfers LTG Duration 12 weeks 1 Impairment impaired lumbar AROM flex, lateral flex, rotation Short Term Goal (STG Pt will improve lumbar AROM by ~10% in each direction ) to improve function STG Duration 6 weeks Decorator Inspector Goal (LTG) Pt will demonstrate 15 mins of simulated yard work including forward bending and squatting without rest break needed d/t pain in order to meet functional goal of gardening LTG Duration 12 weeks Progress Towards Goals Progress Towards Progressing Toward Goals Goals Assessment Summary Assessment Pt is progressing with all exercises and postural training with improved knowledge and coordination during exercises. New HEP given this session, continues to have pain and decreased soft tissue mobility to R lumbar paraspinals, recommended addition of heat pack in evenings Physical Therapy Plan Frequency and Duration Frequency of 2-3x/wk Treatment Duration of 12 treatment (weeks) Plan of Care Start 10/12/24 Date Plan of Care End 01/04/25 Date Therapeutic Interventions Therapeutic Balance Training,Gait Training,Home Exercise Program, Interventions Manual Therapy,Neuromuscular Re-education,Patient/ Caregiver Education,Soft Tissue Mobilization,Taping, Therapeutic Activities,Therapeutic Exercises Modalities Cold Pack/Ice Massage,Electric Stimulation,Hot Packs, Infrared Therapy,Ultrasound Next Visit Focus/Plan Next Note Type Treatment Note Next Visit Plan pallof press, add TB to rowing HEP, review HEP, standing PPT against wall and progress
--- NOTE | 2024-11-14 19:45 | PT.OTN ---
Current Diagnoses Dorsalgia, unspecified (11/14/24) Physical Therapy Treatment Note PT-OP-A Visit Information Start: 10/12/24 09:35 Freq: Status: Active Protocol: Document 11/14/24 09:05 ELECTRONIC HEAT SEAL OPERATOR (Rec: 11/14/24 09:44 ELECTRONIC HEAT SEAL OPERATOR Laptop) Out-Patient Physical Therapy Visit Information Visit Information Visit Type Treatment Note Visit Start Time 09:05 Visit Stop Time 09:43 Visit Number 9 Number of VAN CDL DRIVER Visits 0 PT-OP-B Current Condition Start: 10/12/24 09:35 Freq: Status: Active Protocol: Document 10/12/24 09:37 ELECTRONIC HEAT SEAL OPERATOR (Rec: 10/12/24 10:42 ELECTRONIC HEAT SEAL OPERATOR Laptop) Current Condition History of Current Condition Current Complaints mid and R lumbar pain with radiation to proximal RLE under glute History of Current Lower back in the middle, probably arthritis, with Condition radiation, limited in doing yard work. Has to take a lot of sitting breaks. Mornings are most painful. Does cardiac rehab 3x/wk treadmill and elliptical 20 mins each for 3 years which doesn't bother his back. Walking in neighborhood ~2 miles increases back pain. Has to hold onto treadmill, feels more off balance than he used to. Pain radiates down RLE after increased activity/yard work with bending and stooping, radiates down to just below glute. Prior Treatments and Has had PT for back in 2005 with success Tests Treatment Goals Patient/Caregiver To be more active, to do yard work without so many rest Goals breaks, walk longer distances for golf. PT-OP-C Subjective Start: 10/12/24 09:35 Freq: Status: Active Protocol: Document 11/14/24 09:05 ELECTRONIC HEAT SEAL OPERATOR (Rec: 11/14/24 09:44 ELECTRONIC HEAT SEAL OPERATOR Laptop) OP-PT Subjective Patient Comments Patient Comments Pt reports 1/10 L low back today. PT-OP-D Balance Start: 10/12/24 09:35 Freq: Status: Active Protocol: Document 10/12/24 09:37 ELECTRONIC HEAT SEAL OPERATOR (Rec: 10/12/24 10:42 ELECTRONIC HEAT SEAL OPERATOR Laptop) Balance Tests Single Limb Standing Single Limb- Right 4s Single Limb- Left 4s PT-OP-F Manual Assessment Start: 10/12/24 09:35 Freq: Status: Active Protocol: Document 10/12/24 09:37 ELECTRONIC HEAT SEAL OPERATOR (Rec: 10/12/24 12:11 ELECTRONIC HEAT SEAL OPERATOR Laptop) Manual Assessments Soft Tissue Assessment Soft Tissue Mobility Decreased soft tissue mobility to B glute max, B glute Assessment med, B piriformis, R lumbar paraspinals. R limitation > L with TTP at all PT-OP-H Neuro Start: 10/12/24 09:35 Freq: Status: Active Protocol: Document 10/12/24 09:37 ELECTRONIC HEAT SEAL OPERATOR (Rec: 10/12/24 10:42 ELECTRONIC HEAT SEAL OPERATOR Laptop) Sensation Evaluation Comments Summary Comments Numbness occasionally in all toes of B feet PT-OP-J Posture/Palpation/Skin Start: 10/12/24 09:35 Freq: Status: Active Protocol: Document 10/12/24 09:37 ELECTRONIC HEAT SEAL OPERATOR (Rec: 10/12/24 10:42 ELECTRONIC HEAT SEAL OPERATOR Laptop) Posture Evaluation Comments Posture Comments Sitting: L shoulder elevated, forward head, forward rounded B shoulders Standing: increased mid thoracic kyphosis, decreased lumbar lordosis, mild R trunk lateral flex PT-OP-K Range of Motion Start: 10/12/24 09:35 Freq: Status: Active Protocol: Document 10/12/24 09:37 ELECTRONIC HEAT SEAL OPERATOR (Rec: 10/12/24 10:42 ELECTRONIC HEAT SEAL OPERATOR Laptop) Lumbar Spine Range of Motion Lumbar Spine Active Percentage Testing Position Standing Flexion 75 Rotation Left 50 Rotation Right 60 Lateral Flexion Left 50 Lateral Flexion 40 Right ROM Limitations Soft Tissue Tightness Hip Goniometric Range of Motion Hip ROM Limitations Hip ROM Limitations Pain PT-OP-L Special Tests Start: 10/12/24 09:35 Freq: Status: Active Protocol: Document 10/12/24 09:37 ELECTRONIC HEAT SEAL OPERATOR (Rec: 10/12/24 12:11 ELECTRONIC HEAT SEAL OPERATOR Laptop) Special Tests Lumbar Spine Special Tests Slump Test Results Positive Comments +RLE ext>LLE Straight Leg Raise Test Results Negative Neural Special Tests- Lower Body Sciatic Nerve Tension Test Results positive Comments R>L PT-OP-M Strength Start: 10/12/24 09:35 Freq: Status: Active Protocol: Document 10/12/24 09:37 ELECTRONIC HEAT SEAL OPERATOR (Rec: 10/12/24 10:42 ELECTRONIC HEAT SEAL OPERATOR Laptop) Hip Strength Hip Manual Muscle Testing L Flexion (L2) 4+ Good+ Extension (S1) 3 Fair Abduction 4+ Good+ Adduction 4+ Good+ R Flexion (L2) 4 Good Extension (S1) 3- Fair- Abduction 4 Good Adduction 4+ Good+ Knee Strength Knee Manual Muscle Testing L Flexion (S2) 4+ Good+ Extension (L3) 4 Good R Flexion (S2) 4+ Good+ Extension (L3) 4- Good- PT-OP-Q Treatments Start: 10/12/24 09:35 Freq: Status: Active Protocol: Document 11/14/24 09:05 ELECTRONIC HEAT SEAL OPERATOR (Rec: 11/14/24 09:44 ELECTRONIC HEAT SEAL OPERATOR Laptop) Therapeutic Exercises Supine Exercises Stretch Supine Exercise Name Pec Stretch laying on pool noodle Side bilateral Reps/Minutes 3 mins Comments tolerated well without pain to shoulders, Added to HEP Sitting Exercises QL stretch Sitting Exercise 1. Hip flexion and rotation away 2. Lat trunk flex away Name with UE overhead Side bilateral Reps/Minutes 60s x2 each side each ex Comments lateral trunk flex with UE overhead reach added to HEP Manual Therapy Treatment Consent Patient gave verbal Yes consent for manual treatment Soft Tissue Mobilization Self STM Body Location L QL Body Position Supine Comments self mob with tennis ball, Added to HEP STM Body Location L lumbar paraspinals, QL Mobilization Type Cross-Friction,Rolling Intensity/Depth Deep Body Position Prone PT-OP-T Assessment and Plan Start: 10/12/24 09:35 Freq: Status: Active Protocol: Document 11/14/24 09:05 ELECTRONIC HEAT SEAL OPERATOR (Rec: 11/14/24 09:44 ELECTRONIC HEAT SEAL OPERATOR Laptop) Physical Therapy Assessment Impairments Impairments Activity Tolerance,Balance,Functional Activities, Functional Mobility,Pain,Posture,ROM,Soft Tissue Mobility,Strength Goals 3 Impairment Pain with long distance gait on uneven surface Short Term Goal (STG Pt will demonstrate continuous gait for 10 mins on ) uneven surface outside without AD without rest break STG Duration 6 weeks Senior Care Goal (LTG) Pt will report ability to walk >2 miles outside on uneven surface without AD without rest break without pain in order to amb on golf course. LTG Duration 12 weeks 2 Impairment pain with transitional movements Short Term Goal (STG Pt will score 13 on 30s STS test with minimal pain to ) improve functional transfers STG Duration 6 weeks Senior Care Goal (LTG) Pt will score 15 on 30s STS test without pain to improve functional transfers LTG Duration 12 weeks 1 Impairment impaired lumbar AROM flex, lateral flex, rotation Short Term Goal (STG Pt will improve lumbar AROM by ~10% in each direction ) to improve function STG Duration 6 weeks Senior Care Goal (LTG) Pt will demonstrate 15 mins of simulated yard work including forward bending and squatting without rest break needed d/t pain in order to meet functional goal of gardening LTG Duration 12 weeks Progress Towards Goals Progress Towards Progressing Toward Goals Goals Assessment Summary Assessment Pt is improving overall but still has persistent pain to B low back R>L. Pt tolerated STM to L QL and tolerated QL stretch well with HEP given for stretch and self mob with tennis ball. Pt also tolerated B pec stretch on floor on pool noodle better than previously given doorway stretch and updated to HEP. Continue skilled PT for posture, core strengthening, low back pain, spinal ROM, and BLE strengthening. Physical Therapy Plan Frequency and Duration Frequency of 2-3x/wk Treatment Duration of 12 treatment (weeks) Plan of Care Start 10/12/24 Date Plan of Care End 01/04/25 Date Therapeutic Interventions Therapeutic Balance Training,Gait Training,Home Exercise Program, Interventions Manual Therapy,Neuromuscular Re-education,Patient/ Caregiver Education,Soft Tissue Mobilization,Taping, Therapeutic Activities,Therapeutic Exercises Modalities Cold Pack/Ice Massage,Electric Stimulation,Hot Packs, Infrared Therapy,Ultrasound Next Visit Focus/Plan Next Note Type Treatment Note Next Visit Plan pallof press, add TB to rowing HEP, review HEP and new HEP for QL stretch and tennis ball self mob and pec stretch on pool noodle, standing PPT against wall and progress
--- NOTE | 2024-11-16 13:55 | PT.OTN ---
Current Diagnoses Dorsalgia, unspecified (11/16/24) Physical Therapy Treatment Note PT-OP-A Visit Information Start: 10/12/24 09:35 Freq: Status: Active Protocol: Document 11/16/24 08:33 PERSONAL CONSULTANT (Rec: 11/16/24 09:06 PERSONAL CONSULTANT Laptop) Out-Patient Physical Therapy Visit Information Visit Information Visit Type Progress Note Visit Start Time 08:20 Visit Stop Time 09:06 Visit Number 10 Number of EXCELSIOR CUTTER Visits 0 Evaluation Information Evaluation Date 10/12/24 PT-OP-B Current Condition Start: 10/12/24 09:35 Freq: Status: Active Protocol: Document 10/12/24 09:37 PERSONAL CONSULTANT (Rec: 10/12/24 10:42 PERSONAL CONSULTANT Laptop) Current Condition History of Current Condition Current Complaints mid and R lumbar pain with radiation to proximal RLE under glute History of Current Lower back in the middle, probably arthritis, with Condition radiation, limited in doing yard work. Has to take a lot of sitting breaks. Mornings are most painful. Does cardiac rehab 3x/wk treadmill and elliptical 20 mins each for 3 years which doesn't bother his back. Walking in neighborhood ~2 miles increases back pain. Has to hold onto treadmill, feels more off balance than he used to. Pain radiates down RLE after increased activity/yard work with bending and stooping, radiates down to just below glute. Prior Treatments and Has had PT for back in 2005 with success Tests Treatment Goals Patient/Caregiver To be more active, to do yard work without so many rest Goals breaks, walk longer distances for golf. PT-OP-C Subjective Start: 10/12/24 09:35 Freq: Status: Active Protocol: Document 11/16/24 08:33 PERSONAL CONSULTANT (Rec: 11/16/24 09:06 PERSONAL CONSULTANT Laptop) OP-PT Subjective Patient Comments Patient Comments Pt reports 1/10 pain to R low back today. Has tried the QL stretch and states it is targeting the painful spot in his back. Pt reports he has not been to the store yet to get a tennis ball or pool noodle for self STM and pec stretch. PT-OP-D Balance Start: 10/12/24 09:35 Freq: Status: Active Protocol: Document 11/16/24 08:33 PERSONAL CONSULTANT (Rec: 11/16/24 09:06 PERSONAL CONSULTANT Laptop) Balance Tests Single Limb Standing Single Limb- Right 3s Single Limb- Left 4s PT-OP-F Manual Assessment Start: 10/12/24 09:35 Freq: Status: Active Protocol: Document 10/12/24 09:37 PERSONAL CONSULTANT (Rec: 10/12/24 12:11 PERSONAL CONSULTANT Laptop) Manual Assessments Soft Tissue Assessment Soft Tissue Mobility Decreased soft tissue mobility to B glute max, B glute Assessment med, B piriformis, R lumbar paraspinals. R limitation > L with TTP at all PT-OP-H Neuro Start: 10/12/24 09:35 Freq: Status: Active Protocol: Document 10/12/24 09:37 PERSONAL CONSULTANT (Rec: 10/12/24 10:42 PERSONAL CONSULTANT Laptop) Sensation Evaluation Comments Summary Comments Numbness occasionally in all toes of B feet PT-OP-J Posture/Palpation/Skin Start: 10/12/24 09:35 Freq: Status: Active Protocol: Document 10/12/24 09:37 PERSONAL CONSULTANT (Rec: 10/12/24 10:42 PERSONAL CONSULTANT Laptop) Posture Evaluation Comments Posture Comments Sitting: L shoulder elevated, forward head, forward rounded B shoulders Standing: increased mid thoracic kyphosis, decreased lumbar lordosis, mild R trunk lateral flex PT-OP-K Range of Motion Start: 10/12/24 09:35 Freq: Status: Active Protocol: Document 11/16/24 08:33 PERSONAL CONSULTANT (Rec: 11/16/24 09:06 PERSONAL CONSULTANT Laptop) Lumbar Spine Range of Motion Lumbar Spine Active Percentage Testing Position Standing Flexion 90 Rotation Left 75 Rotation Right 75 Lateral Flexion Left 75 Lateral Flexion 50 Right ROM Limitations Soft Tissue Tightness PT-OP-L Special Tests Start: 10/12/24 09:35 Freq: Status: Active Protocol: Document 10/12/24 09:37 PERSONAL CONSULTANT (Rec: 10/12/24 12:11 PERSONAL CONSULTANT Laptop) Special Tests Lumbar Spine Special Tests Slump Test Results Positive Comments +RLE ext>LLE Straight Leg Raise Test Results Negative Neural Special Tests- Lower Body Sciatic Nerve Tension Test Results positive Comments R>L PT-OP-M Strength Start: 10/12/24 09:35 Freq: Status: Active Protocol: Document 11/16/24 08:33 PERSONAL CONSULTANT (Rec: 11/16/24 09:06 PERSONAL CONSULTANT Laptop) Hip Strength Hip Manual Muscle Testing L Flexion (L2) 4+ Good+ Extension (S1) 4- Good- Abduction 4+ Good+ Adduction 4+ Good+ R Flexion (L2) 4 Good Extension (S1) 4- Good- Abduction 4+ Good+ Adduction 4+ Good+ Knee Strength Knee Manual Muscle Testing L Flexion (S2) 4+ Good+ Extension (L3) 5 Normal R Flexion (S2) 4+ Good+ Extension (L3) 5 Normal PT-OP-Q Treatments Start: 10/12/24 09:35 Freq: Status: Active Protocol: Document 11/16/24 08:33 PERSONAL CONSULTANT (Rec: 11/18/24 13:53 PERSONAL CONSULTANT Laptop) Therapeutic Exercises Supine Exercises Stretch Supine Exercise Name Pec Stretch laying on pool noodle Side bilateral Reps/Minutes 3 mins Comments tolerated well without pain to shoulders, HEP review Standing Exercises 30s STS Standing Exercise 13 without UEs, without pain from regular chair Name Reps/Minutes 13 Pec Stretch Comments discontinued from HEP, replaced with laying on pool noodle Manual Therapy Treatment Consent Patient gave verbal Yes consent for manual treatment Soft Tissue Mobilization Self STM Body Location L QL Body Position Supine Comments self mob with tennis ball, Added to HEP Neuro Re-Education Treatment Balance Activities SLS Surface even surface Comments R 3s, L 4s multiple attempts PT-OP-T Assessment and Plan Start: 10/12/24 09:35 Freq: Status: Active Protocol: Document 11/16/24 08:33 PERSONAL CONSULTANT (Rec: 11/16/24 09:06 PERSONAL CONSULTANT Laptop) Physical Therapy Assessment Impairments Impairments Activity Tolerance,Balance,Functional Activities, Functional Mobility,Pain,Posture,ROM,Soft Tissue Mobility,Strength Goals 3 Impairment Pain with long distance gait on uneven surface Short Term Goal (STG Pt will demonstrate continuous gait for 10 mins on ) uneven surface outside without AD without rest break Status: Progressing (pt will attempt at golf this weekend) STG Duration 6 weeks Waxed Bag Machine Operator Goal (LTG) Pt will report ability to walk >2 miles outside on uneven surface without AD without rest break without pain in order to amb on golf course. LTG Duration 12 weeks 2 Impairment pain with transitional movements Short Term Goal (STG Pt will score 13 on 30s STS test with minimal pain to ) improve functional transfers Status: MET STG Duration 6 weeks Detention Goal (LTG) Pt will score 15 on 30s STS test without pain to improve functional transfers LTG Duration 12 weeks 1 Impairment impaired lumbar AROM flex, lateral flex, rotation Short Term Goal (STG Pt will improve lumbar AROM by ~10% in each direction ) to improve function Status: MET STG Duration 6 weeks Detention Goal (LTG) Pt will demonstrate 15 mins of simulated yard work including forward bending and squatting without rest break needed d/t pain in order to meet functional goal of gardening LTG Duration 12 weeks Progress Towards Goals Progress Towards Progressing Toward Goals Goals Assessment Summary Assessment Pt demonstrates progress towards all goals, meeting 2/3 STGs, the third not yet attempted but plans to attempt at golf this weekend. Pt's low back pain has significantly improved and is now a consistent 1/10 after performing HEP each morning. Pt will still benefit from skilled PT in order to continue progressing towards meeting LTGs. Physical Therapy Plan Frequency and Duration Frequency of 2-3x/wk Treatment Duration of 12 treatment (weeks) Plan of Care Start 10/12/24 Date Plan of Care End 01/04/25 Date Therapeutic Interventions Therapeutic Balance Training,Gait Training,Home Exercise Program, Interventions Manual Therapy,Neuromuscular Re-education,Patient/ Caregiver Education,Soft Tissue Mobilization,Taping, Therapeutic Activities,Therapeutic Exercises Modalities Cold Pack/Ice Massage,Electric Stimulation,Hot Packs, Infrared Therapy,Ultrasound Next Visit Focus/Plan Next Note Type Treatment Note Next Visit Plan SLS/balance, HS stretching, HS strengthening, hip flex strengthening, hip ext
--- NOTE | 2024-11-21 10:21 | PT.OTN ---
Current Diagnoses Dorsalgia, unspecified (11/21/24) Physical Therapy Treatment Note PT-OP-A Visit Information Start: 10/12/24 09:35 Freq: Status: Active Protocol: Document 11/21/24 09:04 AB (Rec: 11/21/24 10:21 AB Laptop) Out-Patient Physical Therapy Visit Information Visit Information Visit Type Treatment Note Visit Note Visit [email or web address] Visit Start Time 09:04 Visit Stop Time 09:49 Visit Number 11 Number of CONE RUNNER Visits 1 Evaluation Information Evaluation Date 10/12/24 PT-OP-B Current Condition Start: 10/12/24 09:35 Freq: Status: Active Protocol: Document 10/12/24 09:37 FRONT DESK ADMINISTRATOR (Rec: 10/12/24 10:42 FRONT DESK ADMINISTRATOR Laptop) Current Condition History of Current Condition Current Complaints mid and R lumbar pain with radiation to proximal RLE under glute History of Current Lower back in the middle, probably arthritis, with Condition radiation, limited in doing yard work. Has to take a lot of sitting breaks. Mornings are most painful. Does cardiac rehab 3x/wk treadmill and elliptical 20 mins each for 3 years which doesn't bother his back. Walking in neighborhood ~2 miles increases back pain. Has to hold onto treadmill, feels more off balance than he used to. Pain radiates down RLE after increased activity/yard work with bending and stooping, radiates down to just below glute. Prior Treatments and Has had PT for back in 2005 with success Tests Treatment Goals Patient/Caregiver To be more active, to do yard work without so many rest Goals breaks, walk longer distances for golf. PT-OP-C Subjective Start: 10/12/24 09:35 Freq: Status: Active Protocol: Document 11/21/24 09:04 AB (Rec: 11/21/24 10:21 AB Laptop) OP-PT Subjective Patient Comments Patient Comments Patient reports he is a little better. Patient reports yard work, right sided back pain comes on usually about 30-40 minutes into the yard work. PT-OP-D Balance Start: 10/12/24 09:35 Freq: Status: Active Protocol: Document 11/16/24 08:33 FRONT DESK ADMINISTRATOR (Rec: 11/16/24 09:06 FRONT DESK ADMINISTRATOR Laptop) Balance Tests Single Limb Standing Single Limb- Right 3s Single Limb- Left 4s PT-OP-F Manual Assessment Start: 10/12/24 09:35 Freq: Status: Active Protocol: Document 10/12/24 09:37 FRONT DESK ADMINISTRATOR (Rec: 10/12/24 12:11 FRONT DESK ADMINISTRATOR Laptop) Manual Assessments Soft Tissue Assessment Soft Tissue Mobility Decreased soft tissue mobility to B glute max, B glute Assessment med, B piriformis, R lumbar paraspinals. R limitation > L with TTP at all PT-OP-H Neuro Start: 10/12/24 09:35 Freq: Status: Active Protocol: Document 10/12/24 09:37 FRONT DESK ADMINISTRATOR (Rec: 10/12/24 10:42 FRONT DESK ADMINISTRATOR Laptop) Sensation Evaluation Comments Summary Comments Numbness occasionally in all toes of B feet PT-OP-J Posture/Palpation/Skin Start: 10/12/24 09:35 Freq: Status: Active Protocol: Document 10/12/24 09:37 FRONT DESK ADMINISTRATOR (Rec: 10/12/24 10:42 FRONT DESK ADMINISTRATOR Laptop) Posture Evaluation Comments Posture Comments Sitting: L shoulder elevated, forward head, forward rounded B shoulders Standing: increased mid thoracic kyphosis, decreased lumbar lordosis, mild R trunk lateral flex PT-OP-K Range of Motion Start: 10/12/24 09:35 Freq: Status: Active Protocol: Document 11/16/24 08:33 FRONT DESK ADMINISTRATOR (Rec: 11/16/24 09:06 FRONT DESK ADMINISTRATOR Laptop) Lumbar Spine Range of Motion Lumbar Spine Active Percentage Testing Position Standing Flexion 90 Rotation Left 75 Rotation Right 75 Lateral Flexion Left 75 Lateral Flexion 50 Right ROM Limitations Soft Tissue Tightness PT-OP-L Special Tests Start: 10/12/24 09:35 Freq: Status: Active Protocol: Document 10/12/24 09:37 FRONT DESK ADMINISTRATOR (Rec: 10/12/24 12:11 FRONT DESK ADMINISTRATOR Laptop) Special Tests Lumbar Spine Special Tests Slump Test Results Positive Comments +RLE ext>LLE Straight Leg Raise Test Results Negative Neural Special Tests- Lower Body Sciatic Nerve Tension Test Results positive Comments R>L PT-OP-M Strength Start: 10/12/24 09:35 Freq: Status: Active Protocol: Document 11/16/24 08:33 FRONT DESK ADMINISTRATOR (Rec: 11/16/24 09:06 FRONT DESK ADMINISTRATOR Laptop) Hip Strength Hip Manual Muscle Testing L Flexion (L2) 4+ Good+ Extension (S1) 4- Good- Abduction 4+ Good+ Adduction 4+ Good+ R Flexion (L2) 4 Good Extension (S1) 4- Good- Abduction 4+ Good+ Adduction 4+ Good+ Knee Strength Knee Manual Muscle Testing L Flexion (S2) 4+ Good+ Extension (L3) 5 Normal R Flexion (S2) 4+ Good+ Extension (L3) 5 Normal PT-OP-Q Treatments Start: 10/12/24 09:35 Freq: Status: Active Protocol: Document 11/21/24 09:04 AB (Rec: 11/21/24 10:21 AB Laptop) Therapeutic Exercises Supine Exercises QL Side bilateral Reps/Minutes 60 sec each side Comments verbal cues hips Supine Exercise Name Piriformis 2. modified Robert Reps/Minutes 60 sec each stretch each LE ( L robert not osmar first trial Comments Verbal cues Sitting Exercises AROM IR Side bilateral Reps/Minutes X 15 Comments Verbal and visual piriformis stretch Side right Comments verbal cues seated hip abd with band Side bilateral Resistance level 2 band Reps/Minutes one min X 1 Comments Verbal cues Manual Therapy Treatment Consent Patient gave verbal Yes consent for manual treatment Soft Tissue Mobilization STM Body Location R lumbar paraspinals, QL and glute/piriformis area Mobilization Type Cross-Friction,Rolling Intensity/Depth Moderate Body Position Sidelying Manual Techniques MET for R AI L PI Type also pubic shotgun Reps/Duration 6 X 6 sech each PT-OP-T Assessment and Plan Start: 10/12/24 09:35 Freq: Status: Active Protocol: Document 11/21/24 09:04 AB (Rec: 11/21/24 10:21 AB Laptop) Physical Therapy Assessment Goals 3 Impairment Pain with long distance gait on uneven surface Short Term Goal (STG Pt will demonstrate continuous gait for 10 mins on ) uneven surface outside without AD without rest break Status: Progressing (pt will attempt at golf this weekend) STG Duration 6 weeks Mcc Goal (LTG) Pt will report ability to walk >2 miles outside on uneven surface without AD without rest break without pain in order to amb on golf course. LTG Duration 12 weeks 2 Impairment pain with transitional movements Short Term Goal (STG Pt will score 13 on 30s STS test with minimal pain to ) improve functional transfers Status: MET STG Duration 6 weeks Plating Operator Goal (LTG) Pt will score 15 on 30s STS test without pain to improve functional transfers LTG Duration 12 weeks 1 Impairment impaired lumbar AROM flex, lateral flex, rotation Short Term Goal (STG Pt will improve lumbar AROM by ~10% in each direction ) to improve function Status: MET STG Duration 6 weeks Mcc Goal (LTG) Pt will demonstrate 15 mins of simulated yard work including forward bending and squatting without rest break needed d/t pain in order to meet functional goal of gardening LTG Duration 12 weeks Assessment Summary Assessment SLS improved to 2 sec from less than one sec post glute med activation. Patient reports back feels better end of session. Physical Therapy Plan Frequency and Duration Frequency of 2-3x/wk Treatment Duration of 12 treatment (weeks) Plan of Care Start 10/12/24 Date Plan of Care End 01/04/25 Date Next Visit Focus/Plan Next Note Type Treatment Note Next Visit Plan SLS/balance, HS stretching, HS strengthening, hip flex strengthening, hip ext
--- NOTE | 2024-11-23 13:29 | PT.OTN ---
Current Diagnoses Dorsalgia, unspecified (11/23/24) Physical Therapy Treatment Note PT-OP-A Visit Information Start: 10/12/24 09:35 Freq: Status: Active Protocol: Document 11/23/24 09:07 SACK SEWER MACHINE (Rec: 11/26/24 13:29 SACK SEWER MACHINE Laptop) Out-Patient Physical Therapy Visit Information Visit Information Visit Type Treatment Note Visit Start Time 09:07 Visit Stop Time 09:52 Visit Number 12 Number of MANAGER MANAGING Visits 0 Evaluation Information Evaluation Date 10/12/24 PT-OP-B Current Condition Start: 10/12/24 09:35 Freq: Status: Active Protocol: Document 10/12/24 09:37 SACK SEWER MACHINE (Rec: 10/12/24 10:42 SACK SEWER MACHINE Laptop) Current Condition History of Current Condition Current Complaints mid and R lumbar pain with radiation to proximal RLE under glute History of Current Lower back in the middle, probably arthritis, with Condition radiation, limited in doing yard work. Has to take a lot of sitting breaks. Mornings are most painful. Does cardiac rehab 3x/wk treadmill and elliptical 20 mins each for 3 years which doesn't bother his back. Walking in neighborhood ~2 miles increases back pain. Has to hold onto treadmill, feels more off balance than he used to. Pain radiates down RLE after increased activity/yard work with bending and stooping, radiates down to just below glute. Prior Treatments and Has had PT for back in 2005 with success Tests Treatment Goals Patient/Caregiver To be more active, to do yard work without so many rest Goals breaks, walk longer distances for golf. PT-OP-C Subjective Start: 10/12/24 09:35 Freq: Status: Active Protocol: Document 11/23/24 09:07 SACK SEWER MACHINE (Rec: 11/26/24 13:29 SACK SEWER MACHINE Laptop) OP-PT Subjective Patient Comments Patient Comments Pt reports slight increased pain to B low back since last session, has not gone to golf course to walk hole to hole to assess low back pain yet. Pt brings in multiple HEP papers this session PT-OP-D Balance Start: 10/12/24 09:35 Freq: Status: Active Protocol: Document 11/16/24 08:33 SACK SEWER MACHINE (Rec: 11/16/24 09:06 SACK SEWER MACHINE Laptop) Balance Tests Single Limb Standing Single Limb- Right 3s Single Limb- Left 4s PT-OP-F Manual Assessment Start: 10/12/24 09:35 Freq: Status: Active Protocol: Document 10/12/24 09:37 SACK SEWER MACHINE (Rec: 10/12/24 12:11 SACK SEWER MACHINE Laptop) Manual Assessments Soft Tissue Assessment Soft Tissue Mobility Decreased soft tissue mobility to B glute max, B glute Assessment med, B piriformis, R lumbar paraspinals. R limitation > L with TTP at all PT-OP-H Neuro Start: 10/12/24 09:35 Freq: Status: Active Protocol: Document 10/12/24 09:37 SACK SEWER MACHINE (Rec: 10/12/24 10:42 SACK SEWER MACHINE Laptop) Sensation Evaluation Comments Summary Comments Numbness occasionally in all toes of B feet PT-OP-J Posture/Palpation/Skin Start: 10/12/24 09:35 Freq: Status: Active Protocol: Document 10/12/24 09:37 SACK SEWER MACHINE (Rec: 10/12/24 10:42 SACK SEWER MACHINE Laptop) Posture Evaluation Comments Posture Comments Sitting: L shoulder elevated, forward head, forward rounded B shoulders Standing: increased mid thoracic kyphosis, decreased lumbar lordosis, mild R trunk lateral flex PT-OP-K Range of Motion Start: 10/12/24 09:35 Freq: Status: Active Protocol: Document 11/16/24 08:33 SACK SEWER MACHINE (Rec: 11/16/24 09:06 SACK SEWER MACHINE Laptop) Lumbar Spine Range of Motion Lumbar Spine Active Percentage Testing Position Standing Flexion 90 Rotation Left 75 Rotation Right 75 Lateral Flexion Left 75 Lateral Flexion 50 Right ROM Limitations Soft Tissue Tightness PT-OP-L Special Tests Start: 10/12/24 09:35 Freq: Status: Active Protocol: Document 10/12/24 09:37 SACK SEWER MACHINE (Rec: 10/12/24 12:11 SACK SEWER MACHINE Laptop) Special Tests Lumbar Spine Special Tests Slump Test Results Positive Comments +RLE ext>LLE Straight Leg Raise Test Results Negative Neural Special Tests- Lower Body Sciatic Nerve Tension Test Results positive Comments R>L PT-OP-M Strength Start: 10/12/24 09:35 Freq: Status: Active Protocol: Document 11/16/24 08:33 SACK SEWER MACHINE (Rec: 11/16/24 09:06 SACK SEWER MACHINE Laptop) Hip Strength Hip Manual Muscle Testing L Flexion (L2) 4+ Good+ Extension (S1) 4- Good- Abduction 4+ Good+ Adduction 4+ Good+ R Flexion (L2) 4 Good Extension (S1) 4- Good- Abduction 4+ Good+ Adduction 4+ Good+ Knee Strength Knee Manual Muscle Testing L Flexion (S2) 4+ Good+ Extension (L3) 5 Normal R Flexion (S2) 4+ Good+ Extension (L3) 5 Normal PT-OP-Q Treatments Start: 10/12/24 09:35 Freq: Status: Active Protocol: Document 11/23/24 09:07 SACK SEWER MACHINE (Rec: 11/26/24 13:29 SACK SEWER MACHINE Laptop) Therapeutic Exercises Supine Exercises SKTC Supine Exercise Name HEP review Reps/Minutes 1 min x2 each Chin Tucks Supine Exercise Name HEP review Reps/Minutes 10x3 Comments Min cueing for form Bridges Supine Exercise Name HEP review and update Side bilateral Resistance Added L2 TB Reps/Minutes 10x2 Comments Added core activation, VC x1 for breathing PPT Supine Exercise Name PPT hold with hooklying single leg fall out Side bilateral Reps/Minutes 10x2 Comments HEP review Knees side to side Supine Exercise Name HEP review Side bilateral Reps/Minutes 10x2 Comments HEP changed from 30s hold to x10 reps Stretch Supine Exercise Name Pec Stretch laying on pool noodle Side bilateral Reps/Minutes 3 mins Comments tolerated well without pain to shoulders, HEP review Prone Exercises Cat Cow Prone Exercise Name HEP review Reps/Minutes x10 Comments No cueing needed for form this session Thread the Needle Prone Exercise Name HEP review Side bilateral Reps/Minutes 30s each Sitting Exercises Scap retract Sitting Exercise HEP review Name Side bilateral Reps/Minutes 10x2 AROM IR Sitting Exercise HEP review Name Side bilateral Reps/Minutes 10x2 Comments Verbal and visual piriformis stretch Sitting Exercise HEP review Name Side right Comments verbal cues QL stretch Sitting Exercise Lat trunk flex away with UE overhead Name Side bilateral Reps/Minutes 60s x2 each side each ex Comments HEP review PT-OP-T Assessment and Plan Start: 10/12/24 09:35 Freq: Status: Active Protocol: Document 11/23/24 09:07 SACK SEWER MACHINE (Rec: 11/26/24 13:29 SACK SEWER MACHINE Laptop) Physical Therapy Assessment Impairments Impairments Activity Tolerance,Balance,Functional Activities, Functional Mobility,Pain,Posture,ROM,Soft Tissue Mobility,Strength Goals 3 Impairment Pain with long distance gait on uneven surface Short Term Goal (STG Pt will demonstrate continuous gait for 10 mins on ) uneven surface outside without AD without rest break Status: Progressing (pt will attempt at golf this weekend) STG Duration 6 weeks Fpc Goal (LTG) Pt will report ability to walk >2 miles outside on uneven surface without AD without rest break without pain in order to amb on golf course. LTG Duration 12 weeks 2 Impairment pain with transitional movements Short Term Goal (STG Pt will score 13 on 30s STS test with minimal pain to ) improve functional transfers Status: MET STG Duration 6 weeks Licensed Retail Supervisor Goal (LTG) Pt will score 15 on 30s STS test without pain to improve functional transfers LTG Duration 12 weeks 1 Impairment impaired lumbar AROM flex, lateral flex, rotation Short Term Goal (STG Pt will improve lumbar AROM by ~10% in each direction ) to improve function Status: MET STG Duration 6 weeks Fpc Goal (LTG) Pt will demonstrate 15 mins of simulated yard work including forward bending and squatting without rest break needed d/t pain in order to meet functional goal of gardening LTG Duration 12 weeks Assessment Summary Assessment Focus this session on reviewing and consolidating HEP program for improved ease and compliance of HEP to progress towards goals. Physical Therapy Plan Frequency and Duration Frequency of 2-3x/wk Treatment Duration of 12 treatment (weeks) Plan of Care Start 10/12/24 Date Plan of Care End 01/04/25 Date Therapeutic Interventions Therapeutic Balance Training,Gait Training,Home Exercise Program, Interventions Manual Therapy,Neuromuscular Re-education,Patient/ Caregiver Education,Soft Tissue Mobilization,Taping, Therapeutic Activities,Therapeutic Exercises Modalities Cold Pack/Ice Massage,Electric Stimulation,Hot Packs, Infrared Therapy,Ultrasound Next Visit Focus/Plan Next Note Type Treatment Note Next Visit Plan figure 4 piriformis stretch, standing anti rotations, standing against wall TA activation
--- NOTE | 2024-11-28 09:54 | PT.OTN ---
Current Diagnoses Dorsalgia, unspecified (11/28/24) Physical Therapy Treatment Note PT-OP-A Visit Information Start: 10/12/24 09:35 Freq: Status: Active Protocol: Document 11/28/24 08:33 AB (Rec: 11/28/24 09:48 AB [id number]) Out-Patient Physical Therapy Visit Information Visit Information Visit Type Treatment Note Visit Note Visit [email or web address]: [email or web address] Visit Start Time 09:04 Visit Stop Time 09:48 Visit Number 13 ( PN 12/15/2024) Number of MECHANICAL ADJUSTER Visits 1 Evaluation Information Evaluation Date 10/12/24 PT-OP-B Current Condition Start: 10/12/24 09:35 Freq: Status: Active Protocol: Document 10/12/24 09:37 FIRMWARE ARCHITECT (Rec: 10/12/24 10:42 FIRMWARE ARCHITECT Laptop) Current Condition History of Current Condition Current Complaints mid and R lumbar pain with radiation to proximal RLE under glute History of Current Lower back in the middle, probably arthritis, with Condition radiation, limited in doing yard work. Has to take a lot of sitting breaks. Mornings are most painful. Does cardiac rehab 3x/wk treadmill and elliptical 20 mins each for 3 years which doesn't bother his back. Walking in neighborhood ~2 miles increases back pain. Has to hold onto treadmill, feels more off balance than he used to. Pain radiates down RLE after increased activity/yard work with bending and stooping, radiates down to just below glute. Prior Treatments and Has had PT for back in 2005 with success Tests Treatment Goals Patient/Caregiver To be more active, to do yard work without so many rest Goals breaks, walk longer distances for golf. PT-OP-C Subjective Start: 10/12/24 09:35 Freq: Status: Active Protocol: Document 11/28/24 08:33 AB (Rec: 11/28/24 09:48 AB [id number]) OP-PT Subjective Patient Comments Patient Comments Patient reports the back is coming along, rates pain 0. 5/10 ambulating into session, 1/10 seated. Patient reports back pain is bilateral. Patient reports playing 18 rounds of golf, used golf cart and reports having no inc pain, just tired. PT-OP-D Balance Start: 10/12/24 09:35 Freq: Status: Active Protocol: Document 11/16/24 08:33 FIRMWARE ARCHITECT (Rec: 11/16/24 09:06 FIRMWARE ARCHITECT Laptop) Balance Tests Single Limb Standing Single Limb- Right 3s Single Limb- Left 4s PT-OP-F Manual Assessment Start: 10/12/24 09:35 Freq: Status: Active Protocol: Document 10/12/24 09:37 FIRMWARE ARCHITECT (Rec: 10/12/24 12:11 FIRMWARE ARCHITECT Laptop) Manual Assessments Soft Tissue Assessment Soft Tissue Mobility Decreased soft tissue mobility to B glute max, B glute Assessment med, B piriformis, R lumbar paraspinals. R limitation > L with TTP at all PT-OP-H Neuro Start: 10/12/24 09:35 Freq: Status: Active Protocol: Document 10/12/24 09:37 FIRMWARE ARCHITECT (Rec: 10/12/24 10:42 FIRMWARE ARCHITECT Laptop) Sensation Evaluation Comments Summary Comments Numbness occasionally in all toes of B feet PT-OP-J Posture/Palpation/Skin Start: 10/12/24 09:35 Freq: Status: Active Protocol: Document 10/12/24 09:37 FIRMWARE ARCHITECT (Rec: 10/12/24 10:42 FIRMWARE ARCHITECT Laptop) Posture Evaluation Comments Posture Comments Sitting: L shoulder elevated, forward head, forward rounded B shoulders Standing: increased mid thoracic kyphosis, decreased lumbar lordosis, mild R trunk lateral flex PT-OP-K Range of Motion Start: 10/12/24 09:35 Freq: Status: Active Protocol: Document 11/16/24 08:33 FIRMWARE ARCHITECT (Rec: 11/16/24 09:06 FIRMWARE ARCHITECT Laptop) Lumbar Spine Range of Motion Lumbar Spine Active Percentage Testing Position Standing Flexion 90 Rotation Left 75 Rotation Right 75 Lateral Flexion Left 75 Lateral Flexion 50 Right ROM Limitations Soft Tissue Tightness PT-OP-L Special Tests Start: 10/12/24 09:35 Freq: Status: Active Protocol: Document 10/12/24 09:37 FIRMWARE ARCHITECT (Rec: 10/12/24 12:11 FIRMWARE ARCHITECT Laptop) Special Tests Lumbar Spine Special Tests Slump Test Results Positive Comments +RLE ext>LLE Straight Leg Raise Test Results Negative Neural Special Tests- Lower Body Sciatic Nerve Tension Test Results positive Comments R>L PT-OP-M Strength Start: 10/12/24 09:35 Freq: Status: Active Protocol: Document 11/16/24 08:33 FIRMWARE ARCHITECT (Rec: 11/16/24 09:06 FIRMWARE ARCHITECT Laptop) Hip Strength Hip Manual Muscle Testing L Flexion (L2) 4+ Good+ Extension (S1) 4- Good- Abduction 4+ Good+ Adduction 4+ Good+ R Flexion (L2) 4 Good Extension (S1) 4- Good- Abduction 4+ Good+ Adduction 4+ Good+ Knee Strength Knee Manual Muscle Testing L Flexion (S2) 4+ Good+ Extension (L3) 5 Normal R Flexion (S2) 4+ Good+ Extension (L3) 5 Normal PT-OP-Q Treatments Start: 10/12/24 09:35 Freq: Status: Active Protocol: Document 11/28/24 08:33 AB (Rec: 11/28/24 09:48 AB [id number]) Therapeutic Exercises Supine Exercises hips Supine Exercise Name 1. Piriformis 2. modified Robert HEP 3. fig 4 stretch HEP Reps/Minutes 60 sec each stretch each LE Comments Verbal cues Sitting Exercises AROM IR Sitting Exercise HEP review Name Side bilateral Reps/Minutes X 15 Comments Verbal and visual, post stretches and manual Standing Exercises abd bracing back to wall Standing Exercise HEP Name Reps/Minutes X12 Comments verbal cues to brace as UE's move overhead Anti-Rotation Standing Exercise [place] press HEP Name Side bilateral Resistance [place] level 3 band Reps/Minutes X 20 X 2 Comments verbal and visual cues Manual Therapy Treatment Consent Patient gave verbal Yes consent for manual treatment Soft Tissue Mobilization STM Body Location Bilateral piriformis/glute and illiopsoas Mobilization Type Cross-Friction,Rolling Intensity/Depth Moderate Body Position Sidelying PT-OP-T Assessment and Plan Start: 10/12/24 09:35 Freq: Status: Active Protocol: Document 11/28/24 08:33 AB (Rec: 11/28/24 09:48 AB [id number]) Physical Therapy Assessment Goals 3 Impairment Pain with long distance gait on uneven surface Short Term Goal (STG Pt will demonstrate continuous gait for 10 mins on ) uneven surface outside without AD without rest break Status: Progressing (pt will attempt at golf this weekend) STG Duration 6 weeks Residential Goal (LTG) Pt will report ability to walk >2 miles outside on uneven surface without AD without rest break without pain in order to amb on golf course. LTG Duration 12 weeks 2 Impairment pain with transitional movements Short Term Goal (STG Pt will score 13 on 30s STS test with minimal pain to ) improve functional transfers Status: MET STG Duration 6 weeks Plant And Maintenance Technician Goal (LTG) Pt will score 15 on 30s STS test without pain to improve functional transfers LTG Duration 12 weeks 1 Impairment impaired lumbar AROM flex, lateral flex, rotation Short Term Goal (STG Pt will improve lumbar AROM by ~10% in each direction ) to improve function Status: MET STG Duration 6 weeks Residential Goal (LTG) Pt will demonstrate 15 mins of simulated yard work including forward bending and squatting without rest break needed d/t pain in order to meet functional goal of gardening LTG Duration 12 weeks Assessment Summary Assessment Patient into session with reports of tolerating golfing . Hip stiffness and weakness continues to impact functional mobility, posture, ability to hold upright posture in standing. Physical Therapy Plan Frequency and Duration Frequency of 2-3x/wk Treatment Duration of 12 treatment (weeks) Plan of Care Start 10/12/24 Date Plan of Care End 01/04/25 Date Next Visit Focus/Plan Next Note Type Treatment Note Next Visit Plan figure 4 piriformis stretch, standing anti rotations, standing against wall TA activation
--- NOTE | 2024-11-30 19:03 | PT.OTN ---
Current Diagnoses Dorsalgia, unspecified (11/30/24) Physical Therapy Treatment Note PT-OP-A Visit Information Start: 10/12/24 09:35 Freq: Status: Active Protocol: Document 11/30/24 09:05 FORMULA TECHNICIAN (Rec: 11/30/24 09:23 FORMULA TECHNICIAN Laptop) Out-Patient Physical Therapy Visit Information Visit Information Visit Type Treatment Note Visit Start Time 09:05 Visit Stop Time 09:49 Visit Number 14 Number of TOOL REPAIRER Visits 0 Evaluation Information Evaluation Date 10/12/24 PT-OP-B Current Condition Start: 10/12/24 09:35 Freq: Status: Active Protocol: Document 10/12/24 09:37 FORMULA TECHNICIAN (Rec: 10/12/24 10:42 FORMULA TECHNICIAN Laptop) Current Condition History of Current Condition Current Complaints mid and R lumbar pain with radiation to proximal RLE under glute History of Current Lower back in the middle, probably arthritis, with Condition radiation, limited in doing yard work. Has to take a lot of sitting breaks. Mornings are most painful. Does cardiac rehab 3x/wk treadmill and elliptical 20 mins each for 3 years which doesn't bother his back. Walking in neighborhood ~2 miles increases back pain. Has to hold onto treadmill, feels more off balance than he used to. Pain radiates down RLE after increased activity/yard work with bending and stooping, radiates down to just below glute. Prior Treatments and Has had PT for back in 2005 with success Tests Treatment Goals Patient/Caregiver To be more active, to do yard work without so many rest Goals breaks, walk longer distances for golf. PT-OP-C Subjective Start: 10/12/24 09:35 Freq: Status: Active Protocol: Document 11/30/24 09:05 FORMULA TECHNICIAN (Rec: 11/30/24 09:23 FORMULA TECHNICIAN Laptop) OP-PT Subjective Patient Comments Patient Comments Pt reports pain is 0.5/10 B low back, shallow on R and deep on L side. HEP of stretches in morning help to reduce pain for day. PT-OP-D Balance Start: 10/12/24 09:35 Freq: Status: Active Protocol: Document 11/16/24 08:33 FORMULA TECHNICIAN (Rec: 11/16/24 09:06 FORMULA TECHNICIAN Laptop) Balance Tests Single Limb Standing Single Limb- Right 3s Single Limb- Left 4s PT-OP-F Manual Assessment Start: 10/12/24 09:35 Freq: Status: Active Protocol: Document 10/12/24 09:37 FORMULA TECHNICIAN (Rec: 10/12/24 12:11 FORMULA TECHNICIAN Laptop) Manual Assessments Soft Tissue Assessment Soft Tissue Mobility Decreased soft tissue mobility to B glute max, B glute Assessment med, B piriformis, R lumbar paraspinals. R limitation > L with TTP at all PT-OP-H Neuro Start: 10/12/24 09:35 Freq: Status: Active Protocol: Document 10/12/24 09:37 FORMULA TECHNICIAN (Rec: 10/12/24 10:42 FORMULA TECHNICIAN Laptop) Sensation Evaluation Comments Summary Comments Numbness occasionally in all toes of B feet PT-OP-J Posture/Palpation/Skin Start: 10/12/24 09:35 Freq: Status: Active Protocol: Document 10/12/24 09:37 FORMULA TECHNICIAN (Rec: 10/12/24 10:42 FORMULA TECHNICIAN Laptop) Posture Evaluation Comments Posture Comments Sitting: L shoulder elevated, forward head, forward rounded B shoulders Standing: increased mid thoracic kyphosis, decreased lumbar lordosis, mild R trunk lateral flex PT-OP-K Range of Motion Start: 10/12/24 09:35 Freq: Status: Active Protocol: Document 11/16/24 08:33 FORMULA TECHNICIAN (Rec: 11/16/24 09:06 FORMULA TECHNICIAN Laptop) Lumbar Spine Range of Motion Lumbar Spine Active Percentage Testing Position Standing Flexion 90 Rotation Left 75 Rotation Right 75 Lateral Flexion Left 75 Lateral Flexion 50 Right ROM Limitations Soft Tissue Tightness PT-OP-L Special Tests Start: 10/12/24 09:35 Freq: Status: Active Protocol: Document 10/12/24 09:37 FORMULA TECHNICIAN (Rec: 10/12/24 12:11 FORMULA TECHNICIAN Laptop) Special Tests Lumbar Spine Special Tests Slump Test Results Positive Comments +RLE ext>LLE Straight Leg Raise Test Results Negative Neural Special Tests- Lower Body Sciatic Nerve Tension Test Results positive Comments R>L PT-OP-M Strength Start: 10/12/24 09:35 Freq: Status: Active Protocol: Document 11/16/24 08:33 FORMULA TECHNICIAN (Rec: 11/16/24 09:06 FORMULA TECHNICIAN Laptop) Hip Strength Hip Manual Muscle Testing L Flexion (L2) 4+ Good+ Extension (S1) 4- Good- Abduction 4+ Good+ Adduction 4+ Good+ R Flexion (L2) 4 Good Extension (S1) 4- Good- Abduction 4+ Good+ Adduction 4+ Good+ Knee Strength Knee Manual Muscle Testing L Flexion (S2) 4+ Good+ Extension (L3) 5 Normal R Flexion (S2) 4+ Good+ Extension (L3) 5 Normal PT-OP-Q Treatments Start: 10/12/24 09:35 Freq: Status: Active Protocol: Document 11/30/24 09:05 FORMULA TECHNICIAN (Rec: 11/30/24 09:23 FORMULA TECHNICIAN Laptop) Therapeutic Exercises Standing Exercises Anti-Rotation Standing Exercise stir the pot CW and CCW Name Side bilateral Resistance navy L4 TB Reps/Minutes x10 R and L, CW and CCW Therapeutic Activity Therapeutic Activity POC Comments discussion of goals, POC, HEP, and maintaining status after D/C next week 10 min walk Name outside on uneven surface Reps/Minutes 11.5 mins Comments pain to B low back starting at 0.5-1/10 and ending at 1 /10 at the most, constant but tolerable throughout walk . Surface includes ramps, stairs, and uneven sidewalk. PT-OP-T Assessment and Plan Start: 10/12/24 09:35 Freq: Status: Active Protocol: Document 11/30/24 09:05 FORMULA TECHNICIAN (Rec: 11/30/24 09:23 FORMULA TECHNICIAN Laptop) Physical Therapy Assessment Goals 3 Impairment Pain with long distance gait on uneven surface Short Term Goal (STG Pt will demonstrate continuous gait for 10 mins on ) uneven surface outside without AD without rest break Status: MET 7/10 STG Duration 6 weeks MET Shelter Goal (LTG) Pt will report ability to walk >2 miles outside on uneven surface without AD without rest break without pain in order to amb on golf course. LTG Duration 12 weeks 2 Impairment pain with transitional movements Short Term Goal (STG Pt will score 13 on 30s STS test with minimal pain to ) improve functional transfers Status: MET STG Duration 6 weeks MET Shelter Goal (LTG) Pt will score 15 on 30s STS test without pain to improve functional transfers LTG Duration 12 weeks 1 Impairment impaired lumbar AROM flex, lateral flex, rotation Short Term Goal (STG Pt will improve lumbar AROM by ~10% in each direction ) to improve function Status: MET STG Duration 6 weeks MET Shelter Goal (LTG) Pt will demonstrate 15 mins of simulated yard work including forward bending and squatting without rest break needed d/t pain in order to meet functional goal of gardening Status: MET 7/10 per pt report, able to do 30-40 mins with 0-1/10 pain without rest break LTG Duration 12 weeks MET Assessment Summary Assessment Pt met goal of amb 10 mins without rest break this session and reports meeting of goal to perform yard work continuously for 15 mins without rest break d/t pain. Discussed with pt significant progress and plateau of pain at 0.5-1/10 pain, which pt agrees is tolerable to functional mobility. Pt and PT both agree pt is ready for D/C at next session. Discussed with pt ability to reduce and maintain low level pain with current HEP and importance of continuing after D/C. Physical Therapy Plan Frequency and Duration Frequency of 2-3x/wk Treatment Duration of 12 treatment (weeks) Plan of Care Start 10/12/24 Date Plan of Care End 01/04/25 Date Therapeutic Interventions Therapeutic Balance Training,Gait Training,Home Exercise Program, Interventions Manual Therapy,Neuromuscular Re-education,Patient/ Caregiver Education,Soft Tissue Mobilization,Taping, Therapeutic Activities,Therapeutic Exercises Modalities Cold Pack/Ice Massage,Electric Stimulation,Hot Packs, Infrared Therapy,Ultrasound Next Visit Focus/Plan Next Note Type Discharge Summary Next Visit Plan assess 30s STS
--- NOTE | 2024-12-07 09:02 | PT.OTN ---
Current Diagnoses Dorsalgia, unspecified (12/07/24) Physical Therapy Treatment Note PT-OP-A Visit Information Start: 10/12/24 09:35 Freq: Status: Active Protocol: Document 12/07/24 08:18 VISUAL DESIGN LEAD (Rec: 12/07/24 09:02 VISUAL DESIGN LEAD Laptop) Out-Patient Physical Therapy Visit Information Visit Information Visit Type Discharge Summary Visit Start Time 08:18 Visit Stop Time 08:56 Visit Number 15 Number of CAT SKINNER Visits 0 Evaluation Information Evaluation Date 10/12/24 PT-OP-B Current Condition Start: 10/12/24 09:35 Freq: Status: Active Protocol: Document 10/12/24 09:37 VISUAL DESIGN LEAD (Rec: 10/12/24 10:42 VISUAL DESIGN LEAD Laptop) Current Condition History of Current Condition Current Complaints mid and R lumbar pain with radiation to proximal RLE under glute History of Current Lower back in the middle, probably arthritis, with Condition radiation, limited in doing yard work. Has to take a lot of sitting breaks. Mornings are most painful. Does cardiac rehab 3x/wk treadmill and elliptical 20 mins each for 3 years which doesn't bother his back. Walking in neighborhood ~2 miles increases back pain. Has to hold onto treadmill, feels more off balance than he used to. Pain radiates down RLE after increased activity/yard work with bending and stooping, radiates down to just below glute. Prior Treatments and Has had PT for back in 2005 with success Tests Treatment Goals Patient/Caregiver To be more active, to do yard work without so many rest Goals breaks, walk longer distances for golf. PT-OP-C Subjective Start: 10/12/24 09:35 Freq: Status: Active Protocol: Document 12/07/24 08:18 VISUAL DESIGN LEAD (Rec: 12/07/24 09:02 VISUAL DESIGN LEAD Laptop) OP-PT Subjective Patient Comments Patient Comments Pt reports he has been increasing walking and golfing over the last week with back holding up really well, not getting more than 1/10 pain during activities after doing HEP in morning. He reports L knee has been bothering him more and more. PT-OP-D Balance Start: 10/12/24 09:35 Freq: Status: Active Protocol: Document 11/16/24 08:33 VISUAL DESIGN LEAD (Rec: 11/16/24 09:06 VISUAL DESIGN LEAD Laptop) Balance Tests Single Limb Standing Single Limb- Right 3s Single Limb- Left 4s PT-OP-F Manual Assessment Start: 10/12/24 09:35 Freq: Status: Active Protocol: Document 10/12/24 09:37 VISUAL DESIGN LEAD (Rec: 10/12/24 12:11 VISUAL DESIGN LEAD Laptop) Manual Assessments Soft Tissue Assessment Soft Tissue Mobility Decreased soft tissue mobility to B glute max, B glute Assessment med, B piriformis, R lumbar paraspinals. R limitation > L with TTP at all PT-OP-H Neuro Start: 10/12/24 09:35 Freq: Status: Active Protocol: Document 10/12/24 09:37 VISUAL DESIGN LEAD (Rec: 10/12/24 10:42 VISUAL DESIGN LEAD Laptop) Sensation Evaluation Comments Summary Comments Numbness occasionally in all toes of B feet PT-OP-J Posture/Palpation/Skin Start: 10/12/24 09:35 Freq: Status: Active Protocol: Document 10/12/24 09:37 VISUAL DESIGN LEAD (Rec: 10/12/24 10:42 VISUAL DESIGN LEAD Laptop) Posture Evaluation Comments Posture Comments Sitting: L shoulder elevated, forward head, forward rounded B shoulders Standing: increased mid thoracic kyphosis, decreased lumbar lordosis, mild R trunk lateral flex PT-OP-K Range of Motion Start: 10/12/24 09:35 Freq: Status: Active Protocol: Document 11/16/24 08:33 VISUAL DESIGN LEAD (Rec: 11/16/24 09:06 VISUAL DESIGN LEAD Laptop) Lumbar Spine Range of Motion Lumbar Spine Active Percentage Testing Position Standing Flexion 90 Rotation Left 75 Rotation Right 75 Lateral Flexion Left 75 Lateral Flexion 50 Right ROM Limitations Soft Tissue Tightness PT-OP-L Special Tests Start: 10/12/24 09:35 Freq: Status: Active Protocol: Document 10/12/24 09:37 VISUAL DESIGN LEAD (Rec: 10/12/24 12:11 VISUAL DESIGN LEAD Laptop) Special Tests Lumbar Spine Special Tests Slump Test Results Positive Comments +RLE ext>LLE Straight Leg Raise Test Results Negative Neural Special Tests- Lower Body Sciatic Nerve Tension Test Results positive Comments R>L PT-OP-M Strength Start: 10/12/24 09:35 Freq: Status: Active Protocol: Document 11/16/24 08:33 VISUAL DESIGN LEAD (Rec: 11/16/24 09:06 VISUAL DESIGN LEAD Laptop) Hip Strength Hip Manual Muscle Testing L Flexion (L2) 4+ Good+ Extension (S1) 4- Good- Abduction 4+ Good+ Adduction 4+ Good+ R Flexion (L2) 4 Good Extension (S1) 4- Good- Abduction 4+ Good+ Adduction 4+ Good+ Knee Strength Knee Manual Muscle Testing L Flexion (S2) 4+ Good+ Extension (L3) 5 Normal R Flexion (S2) 4+ Good+ Extension (L3) 5 Normal PT-OP-Q Treatments Start: 10/12/24 09:35 Freq: Status: Active Protocol: Document 12/07/24 08:18 VISUAL DESIGN LEAD (Rec: 12/07/24 09:02 VISUAL DESIGN LEAD Laptop) Therapeutic Exercises Other Exercises HEP Other Exercise Name finalization and condensation of HEP Therapeutic Activity Therapeutic Activity 30s STS Comments Trial 1: 14 from standard chair with minimal use of hands on thighs Trial 2: 23 from same height mat table without use of hands PT-OP-T Assessment and Plan Start: 10/12/24 09:35 Freq: Status: Active Protocol: Document 12/07/24 08:18 VISUAL DESIGN LEAD (Rec: 12/07/24 09:02 VISUAL DESIGN LEAD Laptop) Physical Therapy Assessment Goals 3 Impairment Pain with long distance gait on uneven surface Short Term Goal (STG Pt will demonstrate continuous gait for 10 mins on ) uneven surface outside without AD without rest break Status: MET 11/30 STG Duration 6 weeks MET Intermediate Goal (LTG) Pt will report ability to walk >2 miles outside on uneven surface without AD without rest break without pain in order to amb on golf course. Status: MET, pain free with walking outside on golf course, slight dull pain in low back only when standing up from sitting for long periods. LTG Duration 12 weeks MET 2 Impairment pain with transitional movements Short Term Goal (STG Pt will score 13 on 30s STS test with minimal pain to ) improve functional transfers Status: MET STG Duration 6 weeks MET Intermediate Goal (LTG) Pt will score 15 on 30s STS test without pain to improve functional transfers Status: MET 12/07 22 LTG Duration 12 weeks MET 1 Impairment impaired lumbar AROM flex, lateral flex, rotation Short Term Goal (STG Pt will improve lumbar AROM by ~10% in each direction ) to improve function Status: MET STG Duration 6 weeks MET Intermediate Goal (LTG) Pt will demonstrate 15 mins of simulated yard work including forward bending and squatting without rest break needed d/t pain in order to meet functional goal of gardening Status: MET 7/10 per pt report, able to do 30-40 mins with 0-1/10 pain without rest break LTG Duration 12 weeks MET Assessment Summary Assessment Pt has met all goals and initial pain in low back is mostly 0/10, up to 1/10 occasionally with transitional movements when sitting or laying down for long periods. Pt is able to maintain 0-1/10 pain level with current HEP and is ind and consistent with performing it. Pt reports L knee starting to bother him but PT recommends to speak to PCP and obtain imaging and new referral to PT for L knee if appropriate. Pt to D/C from PT. Physical Therapy Plan Therapeutic Interventions Therapeutic Balance Training,Gait Training,Home Exercise Program, Interventions Manual Therapy,Neuromuscular Re-education,Patient/ Caregiver Education,Soft Tissue Mobilization,Taping, Therapeutic Activities,Therapeutic Exercises Modalities Cold Pack/Ice Massage,Electric Stimulation,Hot Packs, Infrared Therapy,Ultrasound
== END 2025-02-06 08:58 | disposition home or self-care (01) ==
LOC: PHYS 08:15
PROVIDERS: Family Provider Internal Medicine; PCP Internal Medicine; Referring Provider Internal Medicine; Visit Provider Internal Medicine
DX: M54.9 Dorsalgia, unspecified (principal)
CPT/HCPCS: 97110; 97112; 97140; 97162; 97530

== ENCOUNTER → 2024-12-20 14:34 | Outpatient (CLI) | payer MEDICARE, OTHER, SELFPAY ==
[2024-12-20 16:09] LABS: Prostate Specific Antigen 2.41 ng/mL (0.10-4.00)
== END ==
LOC: LAB 14:35
PROVIDERS: PCP Internal Medicine; Referring Provider Internal Medicine; Visit Provider Internal Medicine
DX: N40.1 Benign prostatic hyperplasia with lower urinary tract symptoms (principal); N13.8 Other obstructive and reflux uropathy
CPT/HCPCS: 36415; 84153

== ENCOUNTER → 2024-12-28 11:36 | Outpatient (CLI) | payer MEDICARE, OTHER, SELFPAY ==
--- NOTE | 2024-12-28 11:38 | DI.RAD.S_ITS ---
PROCEDURE: XR KNEE LT 3V INDICATIONS: left knee pain TECHNIQUE: 3 views of the knee were acquired. COMPARISON: None. FINDINGS: Bones: There are no osseous abnormalities. Joints: The tibialfemoral and patellofemoral joints show mild degeneration. Small effusion Soft tissues: Normal IMPRESSION: Mild degeneration. Small effusion. Dictated by: Raoul Hernandez M.D. on 12/29/2024 at 13:31 Approved by: Raoul Hernandez M.D. on 12/29/2024 at 13:31
--- NOTE | 2024-12-28 11:38 | DI.RAD.S_ITS ---
PROCEDURE: XR LUMBAR SPINE MIN 4V INDICATIONS: back pain TECHNIQUE: 5 views of the lumbar spine acquired, including flexion and extension views. COMPARISON: [facility], , L-SPINE 2-3 VIEWS, 10/04/2014, 12:46. FINDINGS: Lumbar spine curvature and alignment: Mild levoscoliosis lower thoracic and lumbar spine appreciated. Grade 1 L5-S1 spondylolisthesis likely due to facet degeneration appreciated. Bones: There are no osseous abnormalities. Disc spaces: Severe degenerative disc disease present L2-3 L3-4 L4-5 with mild L5-S1 degenerative disc disease. Moderate L1-2 degenerative disc disease also noted. Severe L4-5 L5-S1 degenerative facet disease Intervertebral foramen: Grossly normal in width. Soft tissues: No soft tissue swelling, calcification or mass. IMPRESSION: Multilevel degeneration. Grade 1 L5-S1 spondylolisthesis due to degenerate facet disease Dictated by: Raoul Hernandez M.D. on 12/29/2024 at 13:31 Approved by: Raoul Hernandez M.D. on 12/29/2024 at 13:33
== END ==
PROVIDERS: PCP Internal Medicine; Referring Provider Internal Medicine; Visit Provider Internal Medicine
DX: M17.12 Unilateral primary osteoarthritis, left knee (principal); M25.462 Effusion, left knee; M43.16 Spondylolisthesis, lumbar region; M51.369 Other intervertebral disc degeneration, lumbar region without mention of lumbar back pain or lower extremity pain; M51.379 Other intervertebral disc degeneration, lumbosacral region without mention of lumbar back pain or lower extremity pain; M47.816 Spondylosis without myelopathy or radiculopathy, lumbar region; M47.817 Spondylosis without myelopathy or radiculopathy, lumbosacral region; M54.50 Low back pain, unspecified; M25.569 Pain in unspecified knee; G89.29 Other chronic pain
CPT/HCPCS: 72110; 73562

== ENCOUNTER → 2025-03-13 13:09 | Outpatient (CLI) | payer MEDICARE, OTHER, SELFPAY ==
--- NOTE | 2025-03-13 13:10 | DI.RAD.S_ITS ---
PROCEDURE: XR CHEST 2V INDICATIONS: [employer] TECHNIQUE: 2 views of the chest were acquired. COMPARISON: None. FINDINGS: Heart, mediastinum and pulmonary vascular: Heart is normal in size and configuration. AICD is in satisfactory position without complication. Mediastinum is unremarkable. Pulmonary vascular is normal. Lungs: Minor bibasilar atelectasis and/or scarring appreciated Pleural spaces: Normal-no effusions or pneumothorax. IMPRESSION: No acute cardiopulmonary disease Dictated by: Raoul Hernandez M.D. on 03/14/2025 at 11:54 Approved by: Raoul Hernandez M.D. on 03/14/2025 at 11:57
== END ==
PROVIDERS: PCP Internal Medicine; Referring Provider Physical Medicine & Rehabilitation; Visit Provider Physical Medicine & Rehabilitation
DX: Z95.0 Presence of cardiac pacemaker (principal)
CPT/HCPCS: 71046

== ENCOUNTER → 2025-05-01 14:22 | Outpatient (CLI) | payer MEDICARE, OTHER, SELFPAY ==
[2025-05-01 14:45] LABS: Hematocrit 37.8 % (41-53); Hemoglobin 12.9 g/dL (13.5-17.5); Mean Corpuscular HGB Conc 34.2 % (30-36); Mean Corpuscular Hemoglobin 33.5 PG (26-34); Mean Corpuscular Volume 98.0 fL (80-100); Platelet Count 120 X10^3/uL (150-400)
[2025-05-01 14:57] LABS: Alanine Aminotransferase 22 IU/L (<50); Albumin 4.2 g/dL (3.5-5.0); Albumin Globulin Ratio 1.3 (1.0-2.8); Alkaline Phosphatase 60 U/L (38-126); Blood Urea Nitrogen 34 mg/dL (9-20); Calcium 9.5 mg/dL (8.4-10.2); Carbon Dioxide 23 mmol/L (22-32); Chloride 107 mmol/L (98-107); Cholesterol 128 mg/dL (140-199); Estimated Glomerular Filt Rate 38 mL/min (>60); Globulin 3.2 g/dL (1.7-4.1); Glucose 101 mg/dL (70-99); HDL Cholesterol 59 mg/dL (40-60); HEMOLYSIS < 15 (0-50); Potassium 4.7 mmol/L (3.4-5.1); Sodium 139 mmol/L (137-145); Total Protein 7.4 g/dL (6.3-8.2); Triglycerides 100 mg/dL (35-150)
[2025-05-01 15:07] LABS: NT-proBNP (BNP-Adult 18+) 5190 pg/mL (<450)
[2025-05-01 15:29] LABS: TSH w/ Reflex to FT4 1.55 uIU/mL (0.47-4.68)
== END ==
PROVIDERS: PCP Internal Medicine; Referring Provider Internal Medicine; Visit Provider Internal Medicine
DX: I25.118 Atherosclerotic heart disease of native coronary artery with other forms of angina pectoris (principal); E78.2 Mixed hyperlipidemia; I50.22 Chronic systolic (congestive) heart failure; N18.32 Chronic kidney disease, stage 3b
CPT/HCPCS: 36415; 80053; 80061; 83880; 84443; 85027

== ENCOUNTER → 2025-05-03 15:11 | Outpatient (CLI) | payer MEDICARE, OTHER, SELFPAY ==
--- NOTE | 2025-05-03 15:12 | DI.NM.S_ITS ---
PROCEDURE: NM DEEPALI PERF SPECT R&S PHARM Rest and pharmacological stress myocardial perfusion SPECT with gated imaging and ejection fraction RADIOPHARMACEUTICAL: 25.4 mCi Tc-99m tetrafosmin IV at rest and 26.3 mCi Tc-99m tetrafosmin IV at peak effect of pharmacological stress. [id number] was performed. INDICATIONS: chest pain PQRS ATTESTATIONS: Measure 322 - Is this imaging test primarily performed on a low-risk surgery patient for preoperative evaluation within 30 days preceding their low-risk non-cardiac surgery? Low-risk surgery is defined as cardiac or myocardial infarction less than 1%, including (but not limited to) endoscopic procedures, superficial procedures, cataract surgery, and excisional breast surgery: Answer: No Measure 323 - Is this imaging test performed primarily for the monitoring of an asymptomatic patient who had percutaneous coronary intervention on the visit date or within 2 years of the visit date? Answer: No Measure 324 - Is this imaging test performed primarily for the initial detection and risk assessment on an asymptomatic, low coronary heart disease patient? Low CHD risk definition = clinicians should consider the maximum number of available patient factors used to estimate risk based on [place] (ATP III criteria), typically age, gender, diabetes, smoking status, and use of blood pressure medication, and integrate age appropriate estimates for missing elements, such as LDL or standard blood pressure. Answer: No TECHNIQUE: Radiopharmaceutical was injected at peak stress test, and also at rest. SPECT images were obtained. SPECT myocardial perfusion images were displayed in short axis, horizontal long axis, and vertical long axis views. Gated images were reviewed using Get[employer] software. COMPARISON: None. CARDIAC STRESS: A pharmacologic stress test was performed under the supervision of an attending staff, using an infusion of 0.4 mg of Lexiscan. Robert was initially stressed via exercise but due to inability to reach target heart rate, the stress of was changed to a pharmacological stress. Hemodynamic data: There is normal blood pressure and heart rate response to pharmacologic stress. Symptoms: Robert did complain of left arm pain during the stress test which revealed resolved during recovery. Aminophylline: None EKG: No diagnostic changes of ischemia; rate related bundle branch block and frequent PVCs with 1 episode of nonsustained ventricular tachycardia lasting 3 beats noted. FINDINGS: Raw data: There is good myocardial uptake of radiotracer. No significant motion artifacts. Qjjf-nk-ngfxc ratio is 0.33 (normal is less than 0.38 for tetrafosmin tracer). Left ventricle function: Gated images demonstrate normal left ventricular wall thickening. No segmental wall motion abnormalities. No transient ischemic dilation; TID is 1.11 (normal less than 1.3). Left ventricle resting end diastolic volume is 287 mL. The left ventricle stress ejection fraction is 30%; normal range is above 45%. Myocardial perfusion: Resting images had moderate to severe hypoperfusion in the entire inferior segment. There was no perfusion present in the basal to mid inferolateral segment. Stress images demonstrated the same perfusion defects. No prone images obtained. 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 Dictated by: Alo Douglas M.D. on 05/10/2025 at 16:42 Approved by: Alo Douglas M.D. on 05/10/2025 at 16:47
== END ==
PROVIDERS: PCP Internal Medicine; Referring Provider Internal Medicine; Visit Provider Internal Medicine
DX: I25.118 Atherosclerotic heart disease of native coronary artery with other forms of angina pectoris (principal)
CPT/HCPCS: 78452; 93017; A9502; J2785